=== PATIENT | female | born 1975 | race Caucasian/White ===

== ENCOUNTER 2016-06-01 05:30 | Emergency (ER) | payer MEDICAID ==
[2016-06-01] MEDS ORDERED: SODIUM CHLORIDE 0.9% 1,000 ML IV STA (06:02)
[2016-06-01] MEDS ORDERED: KETOROLAC 30 MG/ML 1 ML VIAL IVP STA (06:02)
--- NOTE | 2016-06-01 06:04 | ED ---
Abdominal Pain HPI - General Source: patient, RN notes reviewed Mode of arrival: ambulatory Limitations: no limitations - History of Present Illness MD Complaint: flank pain <Jey Gauthier - Last Filed: 06/01/16 06:57> <Toby Daniel - Last Filed: 06/01/16 08:20> - General Chief Complaint: Abdominal Pain Stated Complaint: abd/back pain Time Seen by Provider: 06/01/16 05:50 - History of Present Illness Initial Comments: This is a 41-year-old female history kidney stones many years ago states she had the onset earlier this evening and last night of left-sided pain and some low back pain radiating to her groin area. Is mostly dull and achy but at times there is contraction-like feelings was sharp pain. At worst it is 7/10 currently is 6/10 she has some nausea no vomiting no dysuria no hematuria no fevers chills or sweats. She states it does feel somewhat like her previous kidney stone. (Jey Gauthier) - Related Data Home Medications Medication Instructions Recorded Confirmed ALPRAZolam [Xanax] 0.25 - 0.5 mg PO BID PRN 08/14/13 06/01/16 Topiramate [Topiramate] 100 mg PO DAILY 08/14/13 06/01/16 Butalb/Acetaminophen/Caffeine 1 tab PO TID PRN 08/17/14 06/01/16 [Fioricet 50-325-40] Rizatriptan Benzoate [Maxalt] 10 mg SL DAILY PRN 08/17/14 06/01/16 Cholecalciferol [Vitamin D3] 1,000 unit PO Q48H 06/01/16 06/01/16 Dexlansoprazole [Dexilant] 60 mg PO DAILY 06/01/16 06/01/16 Magnesium 200 mg PO DAILY 06/01/16 06/01/16 Pramipexole [Mirapex] 0.125 mg PO HS 06/01/16 06/01/16 Propranolol HCl [Propranolol HCl 60 mg PO DAILY 06/01/16 06/01/16 ER] Turmeric Root Extract [Turmeric] 500 mg PO DAILY 06/01/16 06/01/16 Previous Rx's Medication Instructions Recorded Ketorolac [Toradol] 10 mg PO Q6HR PRN #15 tab 06/01/16 Metoclopramide HCl [Reglan] 10 mg PO Q6HR PRN #15 tablet 06/01/16 Allergies Allergy/AdvReac Type Severity Reaction Status Date / Time Iodinated Contrast Media - Allergy Rash/Hives Verified 06/01/16 07:52 Oral and [Iodinated Contrast Media - IV Dye] Review of Systems ROS Other: All systems not noted in ROS Statement are negative. <Jey Gauthier - Last Filed: 06/01/16 06:57> ROS Other: All systems not noted in ROS Statement are negative. <Toby Daniel - Last Filed: 06/01/16 08:20> ROS Statement: Those systems with pertinent positive or pertinent negative responses have been documented in the HPI. Past Medical History Past Medical History: GERD/Reflux, Hypertension Additional Past Medical History / Comment(s): HAD BLOOD PATCH X2 POST EPIDURAL History of Any Multi-Drug Resistant Organisms: None Reported Past Surgical History: Tubal Ligation Past Anesthesia/Blood Transfusion Reactions: No Reported Reaction Past Psychological History: Anxiety Smoking Status: Former smoker Past Alcohol Use History: Occasional Past Drug Use History: None Reported - Past Family History Mother Family Medical History: Cancer <Jey Gauthier - Last Filed: 06/01/16 06:57> General Exam Limitations: no limitations General appearance: alert, in no apparent distress Head exam: Present: atraumatic, normocephalic, normal inspection Eye exam: Present: normal appearance, PERRL, EOMI. Absent: scleral icterus, conjunctival injection, periorbital swelling ENT exam: Present: normal exam, mucous membranes moist Neck exam: Present: normal inspection. Absent: tenderness, meningismus, lymphadenopathy Respiratory exam: Present: normal lung sounds bilaterally. Absent: respiratory distress, wheezes, rales, rhonchi, stridor Cardiovascular Exam: Present: regular rate, normal rhythm, normal heart sounds. Absent: systolic murmur, diastolic murmur, rubs, gallop, clicks GI/Abdominal exam: Present: soft, normal bowel sounds. Absent: distended, tenderness, guarding, rebound, rigid Extremities exam: Present: normal inspection, full ROM, normal capillary refill. Absent: tenderness, pedal edema, joint swelling, calf tenderness Back exam: Present: normal inspection Neurological exam: Present: alert, oriented X3, CN II-XII intact Psychiatric exam: Present: normal affect, normal mood Skin exam: Present: warm, dry, intact, normal color. Absent: rash <AbrahanJey - Last Filed: 06/01/16 06:57> <Toby Daniel - Last Filed: 06/01/16 08:20> - General Exam Comments Initial Comments: This is a well-developed well-nourished awake alert oriented x3 female (Jey Gauthier) Course <Jey Gauthier - Last Filed: 06/01/16 06:57> <Toby Daniel - Last Filed: 06/01/16 08:20> Vital Signs 06/01/16 06/01/16 06/01/16 05:35 06:53 07:34 Temperature 97.4 F L 98.0 F 98.1 F Pulse Rate 78 66 76 Respiratory 18 18 18 Rate Blood Pressure 194/112 151/101 172/108 O2 Sat by Pulse 100 100 100 Oximetry - Reevaluation(s) Reevaluation #1: 06/01/16 06:57 The patient will be endorsed to Dr. Daniel at our shift change. He will make the final disposition. (Jey Gauthier) Medical Decision Making - Lab Data Result diagrams: 06/01/16 06:18 <AbrahanJey - Last Filed: 06/01/16 06:57> - Lab Data Result diagrams: 06/01/16 06:18 06/01/16 06:18 - Radiology Data Radiology results: image reviewed (kub shows no acute process) <Toby Daniel - Last Filed: 06/01/16 08:20> - Medical Decision Making Patient reevaluated by myself, Dr. Daniel. Patient resting comfortably in bed. Patient states her symptoms are near resolved. Abdomen soft and nontender. Patient states he was never tender to push on. Patient states symptoms are similar to two previous kidney stones. No fevers. Patient only had mild nausea yesterday. Patient is offered computed tomography scan however refuses at this time. Patient is advised that based on her symptoms there is a high likelihood of kidney stones. Pedal pulses 2/4 bilateral (Toby Daniel) - Lab Data Lab Results 06/01/16 06/01/16 06/01/16 Range/Units 05:39 06:18 06:18 WBC 5.1 (3.8-10.6) k/uL RBC 3.86 (3.80-5.40) m/uL Hgb 11.4 (11.4-16.0) gm/dL Hct 34.0 (34.0-46.0) % MCV 88.2 (80.0-100.0) fL MCH 29.4 (25.0-35.0) pg MCHC 33.4 (31.0-37.0) g/dL RDW 14.7 (11.5-15.5) % Plt Count 185 (150-450) k/uL Neutrophils % 64 % Lymphocytes % 24 % Monocytes % 7 % Eosinophils % 2 % Basophils % 1 % Neutrophils # 3.3 (1.3-7.7) k/uL Lymphocytes # 1.2 (1.0-4.8) k/uL Monocytes # 0.4 (0-1.0) k/uL Eosinophils # 0.1 (0-0.7) k/uL Basophils # 0.0 (0-0.2) k/uL Sodium 139 (137-145) mmol/L Potassium 4.4 (3.5-5.1) mmol/L Chloride 109 H (98-107) mmol/L Carbon Dioxide 24 (22-30) mmol/L Anion Gap 6 mmol/L BUN 13 (7-17) mg/dL Creatinine 0.66 (0.52-1.04) mg/dL Est GFR (MDRD) Af Amer >60 (>60 ml/min/1.73 sqM) Est GFR (MDRD) Non-Af >60 (>60 ml/min/1.73 sqM) Glucose 101 H (74-99) mg/dL Calcium 8.6 (8.4-10.2) mg/dL Total Bilirubin 0.4 (0.2-1.3) mg/dL AST 20 (14-36) U/L ALT 23 (9-52) U/L Alkaline Phosphatase 101 (38-126) U/L Total Protein 6.6 (6.3-8.2) g/dL Albumin 3.4 L (3.5-5.0) g/dL Amylase 78 (30-110) U/L Lipase 159 (23-300) U/L Urine Color Light Yellow Urine Appearance Clear (Clear) Urine pH 7.5 (5.0-8.0) Ur Specific [place] 1.013 (1.001-1.035) Urine Protein Negative (Negative) Urine Glucose (UA) Negative (Negative) Urine Ketones Negative (Negative) Urine Blood Small H (Negative) Urine Nitrite Negative (Negative) Urine Bilirubin Negative (Negative) Urine Urobilinogen <2.0 (<2.0) mg/dL Ur Leukocyte Esterase Negative (Negative) Urine RBC 2 (0-5) /hpf Urine WBC 1 (0-5) /hpf Ur Squamous Epith Cells 4 (0-4) /hpf Urine Mucus Rare H (None) /hpf Disposition <Jey Gauthier - Last Filed: 06/01/16 06:57> <Toby Daniel - Last Filed: 06/01/16 08:20> Clinical Impression: Flank pain Disposition: HOME SELF-CARE Condition: Stable Instructions: Flank Pain (ED) Additional Instructions: Please follow-up with primary care physician in the next day or 2 for recheck. Return for increased pain, fevers, uncontrolled vomiting, worsening symptoms or other concerns. Prescriptions: Ketorolac [Toradol] 10 mg PO Q6HR PRN #15 tab PRN Reason: Pain Metoclopramide HCl [Reglan] 10 mg PO Q6HR PRN #15 tablet PRN Reason: Nausea Referrals: Sylvia Pablo MD [Primary Care Provider] - 1-2 days
[2016-06-01 06:29] LABS: Basophils % (A) 1 %; CH 28.8; CHCM 32.8; Eosinophils # (A) 0.1 k/uL (0-0.7); Eosinophils % (A) 2 %; HDW 2.79; HGB 11.4 gm/dL (11.4-16.0); Luc # (Auto) 0.12; Luc % (Auto) 2; Lymphocytes # (A) 1.2 k/uL (1.0-4.8); Lymphocytes % (A) 24 %; MCH 29.4 pg (25.0-35.0); MCHC 33.4 g/dL (31.0-37.0); MCV 88.2 fL (80.0-100.0); Mean Platelet Volume 6.8; Monocytes # (A) 0.4 k/uL (0-1.0); Monocytes % (A) 7 %; Neutrophils # (A) 3.3 k/uL (1.3-7.7); Neutrophils % (A) 64 %; RBC 3.86 m/uL (3.80-5.40); RDW 14.7 % (11.5-15.5); WBC 5.1 k/uL (3.8-10.6); WBC (Perox) 5.47
[2016-06-01 06:41] LABS: Appearance,Urine Clear (Clear); Bilirubin,Urine Negative (Negative); Glucose,Urine (UA) Negative (Negative); Ketones,Urine Negative (Negative); Leukocyte Esterase,Urine Negative (Negative); Mucus,Urine Rare /hpf; Nitrite,Urine Negative (Negative); PH, Urine 7.5 (5.0-8.0); Particle Count 2230; Protein,Urine Negative (Negative); RBC,Urine 2 /hpf (0-5); Specific Gravity,Urine 1.013 (1.001-1.035); Squamous Epithelial Cell,Urine 4 /hpf (0-4); UA Billing (MACRO vs. MICRO) MICRO; Urobilinogen,Urine <2.0 mg/dL (<2.0); WBC,Urine 1 /hpf (0-5)
[2016-06-01 06:44] LABS: ALT 23 U/L (9-52); AST 20 U/L (14-36); Alkaline Phosphatase 101 U/L (38-126); Amylase 78 U/L (30-110); Anion Gap 6 mmol/L; Blood Urea Nitrogen 13 mg/dL (7-17); Calcium 8.6 mg/dL (8.4-10.2); Carbon Dioxide 24 mmol/L (22-30); Chloride 109 mmol/L (98-107); Glucose 101 mg/dL (74-99); Non-African American GFR(MDRD) >60 (>60 ml/min/1.73 sqM); Potassium 4.4 mmol/L (3.5-5.1); Sodium 139 mmol/L (137-145); Total Bilirubin 0.4 mg/dL (0.2-1.3); Total Protein 6.6 g/dL (6.3-8.2)
--- NOTE | 2016-06-01 08:06 | XR ---
Abdomen HISTORY: Left lower quadrant pain, nausea Frontal view of the abdomen on 2 images The lung bases are clear. There is no bowel obstruction or pneumoperitoneum evident. Fallopian tubal ligation clips are present within the pelvis. Probable phlebolith in the left hemipelvis. IMPRESSION: Nonobstructive bowel gas pattern.
[2016-06-01] MEDS ORDERED: PROPRANOLOL 20 MG TAB PO STA (08:37)
[2016-06-01 09:07] VITALS: RESP 16
[2016-06-01 09:50] VITALS: BP 150/81; PULSE 64; TEMP 97.8
== END 2016-06-01 09:53 | disposition home or self-care (01) ==
LOC: EC 05:30
DX: R10.32 Left lower quadrant pain (principal); M54.5 Low back pain; K21.9 Gastro-esophageal reflux disease without esophagitis; I10 Essential (primary) hypertension; Z87.891 Personal history of nicotine dependence; Z79.899 Other long term (current) drug therapy; Z91.041 Radiographic dye allergy status; Z87.442 Personal history of urinary calculi
CPT/HCPCS: 36415; 80053; 82150; 83690; 85025; 81001; 74000; 99284; 96374; 96361 ×4; J1885

== ENCOUNTER → 2017-01-03 | Outpatient (CLI) | payer MEDICAID ==
--- NOTE | 2017-01-03 12:56 | CT ---
EXAMINATION TYPE: CT brain wo con DATE OF EXAM: 01/03/2017 COMPARISON: 12/03/2012 INDICATION: Headache with dizziness DLP: 986.5 mGycm, Automated exposure control for dose reduction was used. CONTRAST: None CT of the brain is performed utilizing 3 mm thick sections through the posterior fossa and 3 mm thick sections through the remaining calvarium. Study is performed within 24 hours of arrival to the hosp [facility]. No abnormal hyperdensity is present to suggest an acute intracranial hemorrhage. No mass lesion is evident. No acute infarcts are evident. Ventricles and sulci are appropriate for the patient age. Paranasal sinuses and mastoid air cells within the [id number] are clear. IMPRESSIONS: 1. Normal CT Brain
== END | disposition home or self-care (01) ==
LOC: RADCTMAIN 10:50
PROVIDERS: ATTEND Family Medicine
DX: R42 Dizziness and giddiness (principal); G43.909 Migraine, unspecified, not intractable, without status migrainosus
CPT/HCPCS: 70450

== ENCOUNTER 2017-01-10 11:41 | Emergency (ER) | payer MEDICAID ==
[2017-01-10 12:01] VITALS: RESP 18
[2017-01-10] MEDS ORDERED: cloNIDine HCL 0.1 MG TAB PO STA (12:15)
--- NOTE | 2017-01-10 12:23 | ED ---
Recheck HPI - General Chief Complaint: Recheck/Abnormal Lab/Rx Stated Complaint: High Blood Pressure Time Seen by Provider: 01/10/17 12:02 Source: patient, RN notes reviewed Mode of arrival: ambulatory Limitations: no limitations - History of Present Illness Initial Comments: This a 41-year-old female presents emergency Department chief complaint of elevated blood pressure. Patient states that they've been adjusting her blood pressure medication states that she recently has been increased to 80 mg of propranolol. She states that she takes is because she also has chronic migraine headaches. She states that her blood pressure seems to be going up since last night states that she did take her medication around 8 PM last night. Patient states that she's also had worsening headaches though she had a CT which showed no acute abnormality. Denies any focal weakness denies chest pain or shortness of breath. 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 Patient states she was at the pulmonology office in which she checked her blood pressure and told about emergency department. - Related Data Home Medications Medication Instructions Recorded Confirmed ALPRAZolam [Xanax] 0.25 - 0.5 mg PO BID PRN 08/14/13 01/10/17 Topiramate [Topiramate] 50 mg PO BID 08/14/13 01/10/17 Butalb/Acetaminophen/Caffeine 1 tab PO TID PRN 08/17/14 01/10/17 [Fioricet 50-325-40] Rizatriptan Benzoate [Maxalt] 10 mg SL DAILY PRN 08/17/14 01/10/17 Dexlansoprazole [Dexilant] 60 mg PO DAILY 06/01/16 01/10/17 Ranitidine HCl [Zantac] 150 mg PO BID 01/10/17 01/10/17 Venlafaxine HCl [Effexor XR] 75 mg PO DAILY 01/10/17 01/10/17 Allergies Allergy/AdvReac Type Severity Reaction Status Date / Time Iodinated Contrast- Oral and Allergy Rash/Hives Verified 01/10/17 12:11 IV Dye [Iodinated Contrast Media - IV Dye] Review of Systems ROS Statement: Those systems with pertinent positive or pertinent negative responses have been documented in the HPI. ROS Other: All systems not noted in ROS Statement are negative. Past Medical History Past Medical History: GERD/Reflux, Hypertension Additional Past Medical History / Comment(s): HAD BLOOD PATCH X2 POST EPIDURAL History of Any Multi-Drug Resistant Organisms: None Reported Past Surgical History: Tubal Ligation Past Anesthesia/Blood Transfusion Reactions: No Reported Reaction Past Psychological History: Anxiety Smoking Status: Former smoker Past Alcohol Use History: Occasional Past Drug Use History: None Reported - Past Family History Mother Family Medical History: Cancer General Exam Limitations: no limitations General appearance: alert, in no apparent distress Head exam: Present: atraumatic, normocephalic, normal inspection Eye exam: Present: normal appearance, PERRL, EOMI. Absent: scleral icterus, conjunctival injection, periorbital swelling ENT exam: Present: normal exam, mucous membranes moist Neck exam: Present: normal inspection. Absent: tenderness, meningismus, lymphadenopathy Respiratory exam: Present: normal lung sounds bilaterally. Absent: respiratory distress, wheezes, rales, rhonchi, stridor Cardiovascular Exam: Present: regular rate, normal rhythm, normal heart sounds. Absent: systolic murmur, diastolic murmur, rubs, gallop, clicks Course Vital Signs 01/10/17 01/10/17 11:58 13:19 Temperature 97.4 F L Pulse Rate 65 Pulse Rate [ 61 Sitting] Pulse Rate [ 69 Standing] Pulse Rate [ 57 L Supine] Respiratory 18 Rate Blood Pressure 174/98 Blood Pressure 170/100 [Sitting] Blood Pressure 142/102 [Standing] Blood Pressure 155/91 [Supine] O2 Sat by Pulse 100 Oximetry Medical Decision Making - Medical Decision Making 41-year-old female presented from for hypertension. Patient states that her PCP this her back and sent in losartan. Patient states she does feel better after the clonidine here. Patient's EKG is acute changes Patient we discharged with follow-up tomorrow 01/10/17 13:26 EKG performed at 12:36 sinus bradycardia rate of 57 [place] interval 180 QRS 96 QT/ QTC 412/401 Disposition Clinical Impression: Hypertension Disposition: HOME SELF-CARE Condition: Stable Instructions: Hypertension (ED) Additional Instructions: Please return to the Emergency Department if symptoms worsen or any other concerns. Referrals: Sylvia Pablo MD [Primary Care Provider] - 1-2 days Time of Disposition: 13:26
[2017-01-10 13:46] VITALS: BP 145/92; PULSE 66
[2017-01-10 13:51] VITALS: TEMP 97.7
== END 2017-01-10 13:51 | disposition home or self-care (01) ==
LOC: EC 11:41
DX: I10 Essential (primary) hypertension (principal); R00.1 Bradycardia, unspecified; G43.909 Migraine, unspecified, not intractable, without status migrainosus; K21.9 Gastro-esophageal reflux disease without esophagitis; F41.9 Anxiety disorder, unspecified; Z87.891 Personal history of nicotine dependence; Z79.899 Other long term (current) drug therapy; Z91.041 Radiographic dye allergy status
CPT/HCPCS: 93005; 99283

== ENCOUNTER 2017-02-15 09:15 | Day surgery (SDC) | payer MEDICAID ==
[2017-02-07 15:31] VITALS: BMI 29.7
[~2017-02-15 09:15] MED LIST: DEXAMETHASONE SOD PHOSPHATE 10 MG/ML 1 ML VIAL IV ONE; LACTATED RINGERS 1,000 ML IV SCH; ONDANSETRON 4 MG/2 ML VIAL IVP ONE
[2017-02-15] MEDS ORDERED: LIDOCAINE 1% 20 ML VIAL (10MG/ML) FOR IV START INTRADERMA ONE (09:55)
[2017-02-15] MEDS ORDERED: GLYCOPYRROLATE 0.2 MG/ML 2 ML VIAL ONE (11:09)
[2017-02-15] MEDS ORDERED: PROPOFOL 10 MG/ML 20 ML VIAL IV ONE (11:09)
[2017-02-15] MEDS ORDERED: LIDOCAINE 1% INJ 10MG/ML (20 ML MDV) ONE (11:09)
--- NOTE | 2017-02-15 11:35 | P.PCN ---
Date of Procedure: 02/15/17 Procedure(s) Performed: Procedure: Esophagogastroduodenoscopy and biopsy. Preoperative diagnosis: Chronic reflux symptoms symptomatic despite therapy. Postoperative diagnosis: 1. Small sliding hiatal hernia with no obvious esophagitis or complicated reflux disease. 2. Mild antral gastritis. 3. Multiple biopsies obtained from the duodenum, antrum and esophagus. Preparation and sedation: Was provided by anesthesia. Brief clinical history: The patient is a 42-year-old female who is scheduled for this evaluation because of chronic reflux symptoms. The patient has been on acid suppressive therapy for more than 15 years. She has been experiencing reflux and nocturnal episodes of reflux and regurgitation despite medical therapy. She denied dysphagia, odynophagia or any other alarm symptoms including any weight loss. She was evaluated in the office last month and was scheduled for this evaluation to assess for complicated reflux disease or other pathology. Procedure: With the patient on her left lateral decubitus position and after informed consent and adequate sedation, I passed the Olympus-GIF 160 video upper endoscope through the cricopharyngeus down the esophagus. GE junction was around 36 cm from the incisors and it appeared irregular and there was a small sliding hiatal hernia around 1 cm in size but there was no erosions, ulcers, strictures or Caicedo's esophagus. The endoscope was then passed into the stomach which was insufflated with air and inspected in detail including the retroflex view in the cardia. There was some minimal mottling and erythema but no ulcers or erosions. Pyloric channel, duodenal bulb, post bulbar area and descending duodenum showed minimal erythema but otherwise normal. I obtained multiple biopsies from the duodenum, antrum and esophagus then the endoscope was withdrawn. Disposition: The patient tolerated the procedure well. Plan: The patient was reassured. Will await biopsy results. She will continue antireflux diet and measures. Further plans can be made based on her course. I will keep you updated on her progress.
[2017-02-15 16:33] VITALS: BP 129/91; PULSE 82; RESP 16; TEMP 96.9
== END 2017-02-15 12:18 | disposition home or self-care (01) ==
LOC: ORWHC2ENDO 09:15
DX: K21.9 Gastro-esophageal reflux disease without esophagitis (principal); K29.50 Unspecified chronic gastritis without bleeding; K44.9 Diaphragmatic hernia without obstruction or gangrene; I10 Essential (primary) hypertension; F32.9 Major depressive disorder, single episode, unspecified; Z91.041 Radiographic dye allergy status; Z79.899 Other long term (current) drug therapy
CPT/HCPCS: 43239; 81025; 88305; 88342; J2001; J2704

== ENCOUNTER → 2017-05-02 | Outpatient (CLI) | payer OTHER ==
--- NOTE | 2017-05-02 12:24 | XR ---
EXAMINATION TYPE: XR ankle complete RT, XR foot complete RT DATE OF EXAM: 05/02/2017 CLINICAL HISTORY: Pain after fall injury one week ago. TECHNIQUE: Frontal, lateral and oblique images of the right ankle and foot are obtained. COMPARISON: None. FINDINGS: There is no acute fracture/dislocation evident in the right ankle. The ankle mortise appe ars within normal limits. Mild soft tissue swelling over lateral malleolus is present. There is no acute fracture or dislocation evident in the right foot. Flexion in toes is identified. T he joint spaces in the right foot are preserved. Overlying soft tissue is unremarkable. IMPRESSION: There is no acute fracture or dislocation in the right ankle or foot.
--- NOTE | 2017-05-02 12:25 | XR ---
EXAMINATION TYPE: XR knee complete LT, XR tibia fibula LT DATE OF EXAM: 05/02/2017 CLINICAL HISTORY: Pain after fall injury one week ago. TECHNIQUE: Three views of the left knee are obtained. 2 views of left tibia and fibula are acquired. COMPARISON: None. FINDINGS: There is no acute fracture/dislocation evident in left knee. The tri-compartment joint sp aces appear within normal limits. The overlying soft tissue appears unremarkable. Images of left tibia and fibula show no acute fracture or dislocation. Some anterior phleboliths are present mid shaft level. Visualized ankle joint is within normal limits. IMPRESSION: There is no acute fracture or dislocation in the left leg or knee.
== END | disposition home or self-care (01) ==
LOC: RADXRMAIN 11:54
PROVIDERS: ATTEND Emergency Medicine
DX: S80.02XA Contusion of left knee, initial encounter (principal); S80.12XA Contusion of left lower leg, initial encounter; S93.401A Sprain of unspecified ligament of right ankle, initial encounter; S93.601A Unspecified sprain of right foot, initial encounter

== ENCOUNTER → 2017-07-11 | Outpatient (CLI) | payer MEDICAID ==
--- NOTE | 2017-07-11 23:13 | MR ---
EXAMINATION TYPE: MR hip LT wo con DATE OF EXAM: 07/11/2017 COMPARISON: NONE HISTORY: Left Hip Pain with Limited ROM, 5-6 Months Standard multiplanar, multisequence MRI departmental protocol Multiplanar, multisequence images of the left hip were acquired. FINDINGS: The pelvic ring is intact. Sacroiliac joints appear normal. Proximal femurs and hip joints are intact. There is no sign of hip dysplasia. Hip joint spaces are symmetric. There is no evidence o f a pelvic mass. There is no free fluid in the pelvis. I see no bony destructive process. There is no evidence of a soft tissue mass. IMPRESSION: Negative MR scan of the left hip. No evidence of hip dysplasia. No evidence of avascular necrosis.
== END | disposition home or self-care (01) ==
LOC: RADMRIMAIN 18:26
PROVIDERS: ATTEND Orthopaedic Surgery
DX: M25.552 Pain in left hip (principal)

== ENCOUNTER → 2017-07-27 | Outpatient (CLI) | payer MEDICAID ==
--- NOTE | 2017-07-29 09:12 | MR ---
EXAMINATION TYPE: MR lumbar spine wo con DATE OF EXAM: 07/27/2017 COMPARISON: NONE HISTORY: Low back pain several months, Left leg pain TECHNIQUE: T1 and T2 axial and sagittal images of the lumbar spine are submitted. FINDINGS: There is no abnormal signal seen within the visualized spinal cord or paraspinal soft tissu es. Heterogeneous marrow signal noted. At L1-2 there is mild hypertrophic changes of the facets. No disc herniation or canal stenosis. No fo raminal encroachment. At L2-3 there is no disc herniation or canal stenosis. No foraminal encroachment. Mild hypertrophic c hange facets. At L3-4 there is mild hypertrophic change of the facets. No disc herniation, canal stenosis or forami nal encroachment. At L4-5 there is moderate facet arthropathy. No foraminal encroachment or disc herniation. No Canal s tenosis. At L5-S1 there is mild facet arthropathy but no disc herniation or canal stenosis. No foraminal encro achment. IMPRESSION: 1. Multilevel facet arthropathy but no evidence of disc herniation, canal stenosis or foraminal encro achment. 2. Heterogeneous marrow signal diffusely. Ambien the basis of marrow reconversion or osteopenia. Jasper elate clinically. Marrow occupying process felt less likely but not entirely excluded correlate clini icndy.
== END | disposition home or self-care (01) ==
LOC: RADMRIMAIN 17:57
PROVIDERS: ATTEND Orthopaedic Surgery
DX: M46.96 Unspecified inflammatory spondylopathy, lumbar region (principal)
CPT/HCPCS: 72148

== ENCOUNTER → 2018-02-14 | Outpatient (CLI) | payer MEDICAID ==
--- NOTE | 2018-02-15 07:56 | MM ---
Reason for exam: screening (asymptomatic). Last mammogram was performed 2 years and 1 month ago. History: Taking hormonal contraceptives for 2 years. Physical Findings: A clinical breast exam by your physician is recommended on an annual basis and results should be correlated with mammographic findings. MG 3D Screening Mammo W/Cad Bilateral CC and MLO view(s) were taken. Prior study comparison: January 28, 2016, bilateral MG 3d screening mammo w/cad. December 28, 2014, bilateral MG screening mammo w CAD. There are scattered fibroglandular densities. There is no discrete abnormality. No significant changes when compared with prior studies. ASSESSMENT: Negative, BI-RAD 1 RECOMMENDATION: Routine screening mammogram of both breasts in 1 year.
== END ==
LOC: RADMAMWWP 07:28
PROVIDERS: ATTEND Family Medicine
DX: Z12.31 Encounter for screening mammogram for malignant neoplasm of breast (principal)
CPT/HCPCS: 77063; 77067

== ENCOUNTER 2018-03-20 12:54 | Emergency (ER) | payer MEDICAID ==
[2018-03-20 13:05] VITALS: RESP 18
[2018-03-20] MEDS ORDERED: KETOROLAC 30 MG/ML 1 ML VIAL IVP STA (13:18)
[2018-03-20] MEDS ORDERED: SODIUM CHLORIDE 0.9% 1,000 ML IV STA (13:18)
--- NOTE | 2018-03-20 13:23 | ED ---
Abdominal Pain HPI - General Chief Complaint: Abdominal Pain Stated Complaint: back pain Time Seen by Provider: 03/20/18 13:11 Source: patient, RN notes reviewed, old records reviewed Mode of arrival: ambulatory Limitations: no limitations - History of Present Illness Initial Comments: 43-year-old female patient with past history of hypertension, GERD, renal calculi, status post tubal ligation presents to ED with 3 days of left posterior axillary line flank pain that does not radiate into her anterior axillary line. Patient states that this feels similar to kidney stones she has had in the past. Patient reports that this is a waxing and waning, squeezing pain, patient reports that she cannot get comfortable. Patient denies any fevers or chills, nausea vomiting diarrhea, dysuria or urinary complaints. Patient denies any other complaints including chest pain, abdominal pain, shortness of breath. Systemic: Pt denies fatigue, myalgia, fever/chills, rash. Pt denies weakness, night sweats, weight loss. Neuro: Pt denies headache, visual disturbances, syncope or pre-syncope. HEENT: Pt denies ocular discharge or irritation, otalgia, rhinorrhea, pharyngitis or notable lymphadenopathy. Cardiopulmonary: Pt denies chest pain, SOB, heart palpitations, dyspnea on exertion. Abdominal/GI: Pt denies abdominal pain, n/v/d. : Pt denies dysuria, burning w/ urination, frequency/urgency. Denies new onset urinary or bowel incontinence. MSK: Pt denies myalgia, loss of strength or function in extremities. Neuro: Pt denies new onset weakness, paresthesias. - Related Data Home Medications Medication Instructions Recorded Confirmed ALPRAZolam [Xanax] 0.25 - 0.5 mg PO BID PRN 08/14/13 03/20/18 Topiramate 50 mg PO BID 08/14/13 03/20/18 Rizatriptan Benzoate [Maxalt] 10 mg SL DAILY PRN 08/17/14 03/20/18 Dexlansoprazole [Dexilant] 60 mg PO DAILY 06/01/16 03/20/18 Venlafaxine HCl [Effexor XR] 75 mg PO QAM 01/10/17 03/20/18 Losartan [Cozaar] 50 mg PO QAM 02/07/17 03/20/18 Wellbutrin (Unknown Dose) 1 tab PO DAILY 03/20/18 03/20/18 Previous Rx's Medication Instructions Recorded Ibuprofen [Motrin] 600 mg PO Q6HR PRN #40 day 03/20/18 Tamsulosin [Flomax] 0.4 mg PO DAILY #10 cap 03/20/18 Allergies Allergy/AdvReac Type Severity Reaction Status Date / Time Iodinated Contrast- Oral and Allergy Rash/Hives Verified 03/20/18 14:16 IV Dye [Iodinated Contrast Media - IV Dye] Review of Systems ROS Statement: Those systems with pertinent positive or pertinent negative responses have been documented in the HPI. ROS Other: All systems not noted in ROS Statement are negative. Past Medical History Past Medical History: GERD/Reflux, Hypertension Additional Past Medical History / Comment(s): migraines History of Any Multi-Drug Resistant Organisms: None Reported Past Surgical History: Tubal Ligation Past Anesthesia/Blood Transfusion Reactions: Previous Problems w/ Anesthesia, Motion Sickness Additional Past Anesthesia/Blood Transfusion Reaction / Comment(s): spinal headache-post epidural for L&D-blood patch x2 post epidural Past Psychological History: Anxiety, Depression Smoking Status: Former smoker Past Alcohol Use History: None Reported Past Drug Use History: None Reported - Past Family History Mother Family Medical History: Cancer Additional Family Medical History / Comment(s): thyroid Father Additional Family Medical History / Comment(s): paternal grandfather had colon and pancreatic CA General Exam - General Exam Comments Initial Comments: Constitutional: NAD, AOX3, Pt has pleasant affect. HEENT: NC/AT, trachea midline, neck supple, no lymphadenopathy. Posterior pharynx non erythematous, without exudates. External ears appear normal, without discharge. Mucous membranes moist. Eyes PERRLA, EOM intact. There is no scleral icterus. No pallor noted. Cardiopulmonary: RRR, no murmurs, rubs or gallops, no JVD noted. Lungs CTAB in anterior and posterior bass. No peripheral edema. Abdominal exam: Abdomen soft and non-distended. Periumbilical region very mildly tender to palpation, no guarding or rigidity. Bowel sounds active in LLQ. No hepatosplenomegaly. No ecchymosis. Left flank mildly tender to palpation. CVA tenderness negative. Neuro: CN II-XII grossly intact. No nuchal rigidity. MSK: No posterior calf tenderness bilaterally, homans sign negative bilaterally. Posterior tibialis and radial pulse +2 bilaterally. Sensation intact in upper and lower extremities. Full active ROM in upper and lower extremities, 5/5 stregnth. Limitations: no limitations Course Vital Signs 03/20/18 03/20/18 13:02 14:41 Temperature 98.6 F Pulse Rate 105 H 87 Respiratory 18 18 Rate Blood Pressure 149/104 131/92 O2 Sat by Pulse 98 100 Oximetry Medical Decision Making - Medical Decision Making 43-year-old female patient with past history of hypertension, GERD, renal calculi, status post tubal ligation presents to ED with 3 days of left posterior axillary line flank pain that does not radiate into her anterior axillary line. Patient states that this feels similar to kidney stones she has had in the past. Patient denies other complaints. Patient vital signs stable, afebrile. Physical exam displayed left flank mildly tender to palpation. No other acute pathology. Laboratory investigations revealed noncompressive CBC, CMP. UA displayed a small amount of blood. Rare bacteria. Noncontrast CT of abdomen and pelvis displayed nonobstructing left-sided renal stones. A 1.2 cm nodule left adrenal gland. Diverticulosis without diverticulitis. Patient denies renal calculi. Patient pain control well-controlled in ED with morphine , Toradol. Patient administered 1 L of normal saline. Pt not driving home. Pt to be DC with flomax and ibuprofen to use for pain. Pt to f/u with PCP and urology in 1-2 days. Case discussed in depth with Dr. Daneil. - Lab Data Result diagrams: 03/20/18 13:34 03/20/18 13:34 Lab Results 03/20/18 03/20/18 03/20/18 Range/Units 13:34 13:34 13:55 WBC 7.0 (3.8-10.6) k/uL RBC 3.99 (3.80-5.40) m/uL Hgb 10.7 L (11.4-16.0) gm/dL Hct 34.2 (34.0-46.0) % MCV 85.8 (80.0-100.0) fL MCH 26.9 (25.0-35.0) pg MCHC 31.3 (31.0-37.0) g/dL RDW 15.4 (11.5-15.5) % Plt Count 233 (150-450) k/uL Neutrophils % 64 % Lymphocytes % 26 % Monocytes % 6 % Eosinophils % 1 % Basophils % 1 % Neutrophils # 4.5 (1.3-7.7) k/uL Lymphocytes # 1.8 (1.0-4.8) k/uL Monocytes # 0.4 (0-1.0) k/uL Eosinophils # 0.1 (0-0.7) k/uL Basophils # 0.0 (0-0.2) k/uL Hypochromasia Slight Sodium 138 (137-145) mmol/L Potassium 4.0 (3.5-5.1) mmol/L Chloride 109 H (98-107) mmol/L Carbon Dioxide 21 L (22-30) mmol/L Anion Gap 8 mmol/L BUN 16 (7-17) mg/dL Creatinine 0.91 (0.52-1.04) mg/dL Est GFR (CKD-EPI)AfAm 89 (>60 ml/min/1.73 sqM) Est GFR (CKD-EPI)NonAf 77 (>60 ml/min/1.73 sqM) Glucose 102 H (74-99) mg/dL Calcium 9.0 (8.4-10.2) mg/dL Total Bilirubin 0.4 (0.2-1.3) mg/dL AST 20 (14-36) U/L ALT 29 (9-52) U/L Alkaline Phosphatase 97 (38-126) U/L Total Protein 6.9 (6.3-8.2) g/dL Albumin 3.8 (3.5-5.0) g/dL Amylase 90 (30-110) U/L Lipase 196 (23-300) U/L Urine Color Light Yellow Urine Appearance Clear (Clear) Urine pH 6.0 (5.0-8.0) Ur Specific [place] 1.004 (1.001-1.035) Urine Protein Negative (Negative) Urine Glucose (UA) Negative (Negative) Urine Ketones Negative (Negative) Urine Blood Small H (Negative) Urine Nitrite Negative (Negative) Urine Bilirubin Negative (Negative) Urine Urobilinogen <2.0 (<2.0) mg/dL Ur Leukocyte Esterase Negative (Negative) Urine RBC 3 (0-5) /hpf Ur Squamous Epith Cells 1 (0-4) /hpf Urine Bacteria Rare H (None) /hpf Disposition Clinical Impression: Renal calculi Disposition: HOME SELF-CARE Condition: Stable Instructions (If sedation given, give patient instructions): Kidney Stones (ED) Additional Instructions: Patient to adhere to previously discussed treatment plan and will take medication(s) as directed. Patient to follow up with PCP in 1-2 days. Patient to return to ED if symptoms do not improve. Prescriptions: Ibuprofen [Motrin] 600 mg PO Q6HR PRN #40 day PRN Reason: Pain Tamsulosin [Flomax] 0.4 mg PO DAILY #10 cap Is patient prescribed a controlled substance at d/c from ED?: No Referrals: Sylvia Pablo MD [Primary Care Provider] - 1-2 days Alberto Owens MD [STAFF PHYSICIAN] - 1-2 days Time of Disposition: 15:34
[2018-03-20 14:01] LABS: Basophils % (A) 1 %; Eosinophils # (A) 0.1 k/uL (0-0.7); Eosinophils % (A) 1 %; HCT 34.2 % (34.0-46.0); HGB 10.7 gm/dL (11.4-16.0); Hypochromasia Slight; Lymphocytes # (A) 1.8 k/uL (1.0-4.8); Lymphocytes % (A) 26 %; MCH 26.9 pg (25.0-35.0); MCHC 31.3 g/dL (31.0-37.0); MCV 85.8 fL (80.0-100.0); Monocytes # (A) 0.4 k/uL (0-1.0); Monocytes % (A) 6 %; Neutrophils # (A) 4.5 k/uL (1.3-7.7); Neutrophils % (A) 64 %; Platelet Count 233 k/uL (150-450); RBC 3.99 m/uL (3.80-5.40); RDW 15.4 % (11.5-15.5)
[2018-03-20 14:16] LABS: Albumin 3.8 g/dL (3.5-5.0); Total Bilirubin 0.4 mg/dL (0.2-1.3); Total Protein 6.9 g/dL (6.3-8.2)
--- NOTE | 2018-03-20 14:17 | CT ---
EXAMINATION TYPE: CT abdomen pelvis wo con DATE OF EXAM: 03/20/2018 COMPARISON: None INDICATION: Lt flank pain DLP: 611.6 mGycm, Automated exposure control for dose reduction was used. CONTRAST: No IV contrast. Study performed without Oral Contrast TECHNIQUE: Axial images were obtained from above the diaphragm to the pubic rami in the axial plane a t 5 mm thick sections. Reconstructed images are reviewed on the computer in the coronal plane. FINDINGS: Limited CT sections are obtained the lung bases. The lung bases are clear. There is a small hiatal hernia present. CT ABDOMEN: Liver: Normal Spleen: Normal Pancreas: Normal Adrenal glands: There is a 1.2 cm nodule in the posterior left adrenal gland. Gallbladder: Normal Kidneys: No masses are evident. No hydronephrosis is present. No cysts are present. There is a non obstructing 0.4 cm calcification in the posterior mid kidney. There is a nonobstructing renal stone s uperior pole left kidney measuring 0.4 cm. No hydroureter is evident. Phleboliths within the pelvis. Aorta: None Inferior vena cava: Normal. CT PELVIS: Loops of bowel within the abdomen and pelvis are normal. Study is without oral contrast limiting the bowel evaluation. Scattered diverticuli without acute diverticulitis are within the sigmoid colon . Appendix: Normal as visualized. Urinary bladder: Normal. Genitourinary structures: Uterus is normal. Adnexal regions are normal. Osseous structures: No suspicious lytic or sclerotic lesions. IMPRESSIONS: 1. Nonobstructing left-sided renal stones. 2. 1.2 cm nodule left adrenal gland. 3. Diverticulosis without acute diverticulitis.
[2018-03-20 14:25] LABS: Appearance,Urine Clear (Clear); Bacteria,Urine Rare /hpf; Bilirubin,Urine Negative (Negative); Blood,Urine Small (Negative); Color,Urine Light Yellow; Glucose,Urine (UA) Negative (Negative); Ketones,Urine Negative (Negative); Leukocyte Esterase,Urine Negative (Negative); Nitrite,Urine Negative (Negative); Protein,Urine Negative (Negative); RBC,Urine 3 /hpf (0-5); Specific Gravity,Urine 1.004 (1.001-1.035); Squamous Epithelial Cell,Urine 1 /hpf (0-4); Urobilinogen,Urine <2.0 mg/dL (<2.0)
[2018-03-20] MEDS ORDERED: MORPHINE SULFATE 4 MG/ML SYRINGE IV STA ×2 (14:26→15:38)
[2018-03-20] MEDS ORDERED: ACET/COD 300 MG/30 MG STARTER PACK 6 TAB BTL PO STA (15:38)
[2018-03-20 16:09] VITALS: BP 151/98; PULSE 81; TEMP 97.9
== END 2018-03-20 16:09 | disposition home or self-care (01) ==
LOC: EC 12:54
DX: N20.0 Calculus of kidney (principal); K57.90 Diverticulosis of intestine, part unspecified, without perforation or abscess without bleeding; E27.9 Disorder of adrenal gland, unspecified; K21.9 Gastro-esophageal reflux disease without esophagitis; I10 Essential (primary) hypertension; G43.909 Migraine, unspecified, not intractable, without status migrainosus; F32.9 Major depressive disorder, single episode, unspecified; F41.9 Anxiety disorder, unspecified; Z87.891 Personal history of nicotine dependence; Z79.899 Other long term (current) drug therapy; Z91.041 Radiographic dye allergy status; Z98.51 Tubal ligation status
CPT/HCPCS: 36415; 80053; 82150; 83690; 85025; 81001; 74176; 99285; 96374; 96375; 96376; 96361 ×2; J2270; J1885

== ENCOUNTER 2020-03-16 15:31 | Observation (INO) | payer BC, MEDICAID ==
[2020-03-16] MEDS ORDERED: NITROGLYCERIN OINT 1 INCH/GM PACKET TOPICAL STA (16:11)
--- NOTE | 2020-03-16 16:13 | ED ---
General Adult HPI - General Chief complaint: Chest Pain Stated complaint: chest pain Time Seen by Provider: 03/16/20 15:35 Source: patient, EMS, RN notes reviewed, old records reviewed Mode of arrival: EMS Limitations: no limitations - History of Present Illness Initial comments: This is a 45-year-old female who has a past medical history significant for hypertension. Patient comes into the emergency department complaining of left- sided chest pain while at work. Patient states it lasted 20 minutes until EMS arrived and gave her a sublingual nitro. Patient states she also took an aspirin while at work. Patient denied any radiation of the pain. Patient states felt like a squeezing around her chest but mostly on the left side anterior to her heart. Patient denies any shortness of breath or difficulty breathing. Patient denies any nausea. Patient denies any recent fever chills or cough. Patient states currently she is chest pain-free. Patient denies any leg swelling or calf tenderness. - Related Data Home Medications Medication Instructions Recorded Confirmed ALPRAZolam [Xanax] 0.25 - 0.5 mg PO BID PRN 08/14/13 03/20/18 Topiramate 50 mg PO BID 08/14/13 03/20/18 Rizatriptan Benzoate [Maxalt] 10 mg SL DAILY PRN 08/17/14 03/20/18 Dexlansoprazole [Dexilant] 60 mg PO DAILY 06/01/16 03/20/18 Venlafaxine HCl [Effexor XR] 75 mg PO QAM 01/10/17 03/20/18 Losartan [Cozaar] 50 mg PO QAM 02/07/17 03/20/18 Wellbutrin (Unknown Dose) 1 tab PO DAILY 03/20/18 03/20/18 Previous Rx's Medication Instructions Recorded Ibuprofen [Motrin] 600 mg PO Q6HR PRN #40 day 03/20/18 Tamsulosin [Flomax] 0.4 mg PO DAILY #10 cap 03/20/18 Allergies Allergy/AdvReac Type Severity Reaction Status Date / Time Iodinated Contrast Media Allergy Rash/Hives Verified 03/16/20 15:39 [Iodinated Contrast Media - IV Dye] Review of Systems ROS Statement: Those systems with pertinent positive or pertinent negative responses have been documented in the HPI. ROS Other: All systems not noted in ROS Statement are negative. Past Medical History Past Medical History: GERD/Reflux, Hypertension Additional Past Medical History / Comment(s): migraines, History of Any Multi-Drug Resistant Organisms: None Reported Past Surgical History: Tubal Ligation Past Anesthesia/Blood Transfusion Reactions: Previous Problems w/ Anesthesia, M otion Sickness Additional Past Anesthesia/Blood Transfusion Reaction / Comment(s): spinal headache-post epidural for L&D-blood patch x2 post epidural Past Psychological History: Anxiety, Depression Smoking Status: Former smoker Past Alcohol Use History: Occasional Past Drug Use History: None Reported - Past Family History Mother Family Medical History: Cancer Additional Family Medical History / Comment(s): thyroid Father Additional Family Medical History / Comment(s): paternal grandfather had colon and pancreatic CA General Exam - General Exam Comments Initial Comments: GENERAL: Patient is well-developed and well-nourished. Patient is nontoxic and well- hydrated and is in no acute distress. ENT: Neck is soft and supple. No significant lymphadenopathy is noted. Oropharynx is clear. Moist mucous membranes. Neck has full range of motion without eliciting any pain. EYES: The sclera were anicteric and conjunctiva were pink and moist. Extraocular movements were intact and pupils were equal round and reactive to light. Eyelids were unremarkable. PULMONARY: Unlabored respirations. Good breath sounds bilaterally. No audible rales rhonchi or wheezing was noted. CARDIOVASCULAR: There is a regular rate and rhythm without any murmurs gallops or rubs. ABDOMEN: Soft and nontender with normal bowel sounds. SKIN: Skin is clear with no lesions or rashes and otherwise unremarkable. NEUROLOGIC: Patient is alert and oriented x3. Cranial nerves II through XII are grossly i ntact. Motor and sensory are also intact. Normal speech, volume and content. Symmetrical smile. MUSCULOSKELETAL: Normal extremities with adequate strength and full range of motion. No lower extremity swelling or edema. No calf tenderness. LYMPHATICS: No significant lymphadenopathy is noted PSYCHIATRIC: Normal psychiatric evaluation. Limitations: no limitations Course Vital Signs 03/16/20 03/16/20 15:35 16:15 Temperature 97.7 F Pulse Rate 71 66 Respiratory 18 18 Rate Blood Pressure 126/81 115/81 O2 Sat by Pulse 98 99 Oximetry Medical Decision Making - Medical Decision Making EKG shows normal sinus rhythm at 70 bpm MI interval is 172 QRS is 86 QT interval 376 QTC is 406. Patient has no ST segment elevation or depression Chest x-ray shows no acute abnormality. Patient remained chest pain-free ever since she received the nitroglycerin on the ambulance. I started the patient heparin for unstable angina. I spoke with some physicians agreed to admit the patient admitted the patient I consulted cardiology I continue aspirin and Nitropaste and heparin on the floor. - Lab Data Result diagrams: 03/16/20 16:12 03/16/20 16:12 Lab Results 03/16/20 03/16/20 03/16/20 Range/Units 16:12 16:12 16:12 WBC 8.0 (3.8-10.6) k/uL RBC 3.87 (3.80-5.40) m/uL Hgb 11.1 L (11.4-16.0) gm/dL Hct 34.8 (34.0-46.0) % MCV 90.0 (80.0-100.0) fL MCH 28.8 (25.0-35.0) pg MCHC 31.9 (31.0-37.0) g/dL RDW 15.1 (11.5-15.5) % Plt Count 250 (150-450) k/uL MPV 7.6 Neutrophils % 60 % Lymphocytes % 28 % Monocytes % 7 % Eosinophils % 1 % Basophils % 0 % Neutrophils # 4.8 (1.3-7.7) k/uL Lymphocytes # 2.3 (1.0-4.8) k/uL Monocytes # 0.6 (0-1.0) k/uL Eosinophils # 0.1 (0-0.7) k/uL Basophils # 0.0 (0-0.2) k/uL PT 9.9 (9.0-12.0) sec INR 0.9 (<1.2) APTT 20.1 L (22.0-30.0) sec Sodium 137 (137-145) mmol/L Potassium 3.9 (3.5-5.1) mmol/L Chloride 107 (98-107) mmol/L Carbon Dioxide 18 L (22-30) mmol/L Anion Gap 12 mmol/L BUN 16 (7-17) mg/dL Creatinine 0.94 (0.52-1.04) mg/dL Est GFR (CKD-EPI)AfAm 84 (>60 ml/min/1.73 sqM) Est GFR (CKD-EPI)NonAf 73 (>60 ml/min/1.73 sqM) Glucose 88 (74-99) mg/dL Calcium 9.1 (8.4-10.2) mg/dL Magnesium 1.9 (1.6-2.3) mg/dL Total Bilirubin 0.2 (0.2-1.3) mg/dL AST 19 (14-36) U/L ALT 16 (4-34) U/L Alkaline Phosphatase 89 (38-126) U/L Troponin I (0.000-0.034) ng/mL Total Protein 6.7 (6.3-8.2) g/dL Albumin 3.5 (3.5-5.0) g/dL 03/16/20 Range/Units 16:12 WBC (3.8-10.6) k/uL RBC (3.80-5.40) m/uL Hgb (11.4-16.0) gm/dL Hct (34.0-46.0) % MCV (80.0-100.0) fL MCH (25.0-35.0) pg MCHC (31.0-37.0) g/dL RDW (11.5-15.5) % Plt Count (150-450) k/uL MPV Neutrophils % % Lymphocytes % % Monocytes % % Eosinophils % % Basophils % % Neutrophils # (1.3-7.7) k/uL Lymphocytes # (1.0-4.8) k/uL Monocytes # (0-1.0) k/uL Eosinophils # (0-0.7) k/uL Basophils # (0-0.2) k/uL PT (9.0-12.0) sec INR (<1.2) APTT (22.0-30.0) sec Sodium (137-145) mmol/L Potassium (3.5-5.1) mmol/L Chloride (98-107) mmol/L Carbon Dioxide (22-30) mmol/L Anion Gap mmol/L BUN (7-17) mg/dL Creatinine (0.52-1.04) mg/dL Est GFR (CKD-EPI)AfAm (>60 ml/min/1.73 sqM) Est GFR (CKD-EPI)NonAf (>60 ml/min/1.73 sqM) Glucose (74-99) mg/dL Calcium (8.4-10.2) mg/dL Magnesium (1.6-2.3) mg/dL Total Bilirubin (0.2-1.3) mg/dL AST (14-36) U/L ALT (4-34) U/L Alkaline Phosphatase (38-126) U/L Troponin I <0.012 (0.000-0.034) ng/mL Total Protein (6.3-8.2) g/dL Albumin (3.5-5.0) g/dL Critical Care Time Critical Care Time: Yes Total Critical Care Time: 35 Disposition Clinical Impression: Unstable angina pectoris Disposition: ADMITTED IP TO THIS HOSP Referrals: David Garcia [Primary Care Provider] - 1-2 days Time of Disposition: 17:13
[2020-03-16 16:24] LABS: Basophils % (A) 0 %; Eosinophils # (A) 0.1 k/uL (0-0.7); Eosinophils % (A) 1 %; HCT 34.8 % (34.0-46.0); HGB 11.1 gm/dL (11.4-16.0); Lymphocytes # (A) 2.3 k/uL (1.0-4.8); Lymphocytes % (A) 28 %; MCH 28.8 pg (25.0-35.0); MCHC 31.9 g/dL (31.0-37.0); Mean Platelet Volume 7.6; Monocytes # (A) 0.6 k/uL (0-1.0); Monocytes % (A) 7 %; Neutrophils # (A) 4.8 k/uL (1.3-7.7); Neutrophils % (A) 60 %; Platelet Count 250 k/uL (150-450); RBC 3.87 m/uL (3.80-5.40); RDW 15.1 % (11.5-15.5)
[2020-03-16 16:32] LABS: Albumin 3.5 g/dL (3.5-5.0); Calcium 9.1 mg/dL (8.4-10.2); Magnesium 1.9 mg/dL (1.6-2.3); Potassium 3.9 mmol/L (3.5-5.1); Total Bilirubin 0.2 mg/dL (0.2-1.3); Total Protein 6.7 g/dL (6.3-8.2)
[2020-03-16 16:45] LABS: INR 0.9 (<1.2); Prothrombin Time 9.9 sec (9.0-12.0)
--- NOTE | 2020-03-16 16:46 | XR ---
EXAMINATION TYPE: XR chest 2V DATE OF EXAM: 03/16/2020 COMPARISON: 10/08/2015 INDICATION: Chest pain TECHNIQUE: Single frontal view of the chest is obtained. FINDINGS: The heart size is normal. The pulmonary vasculature is normal. The lungs are clear. IMPRESSION: 1. No acute pulmonary process.
[2020-03-16 17:04] LABS: Partial Thromboplastin Time 20.1 sec (22.0-30.0)
[2020-03-16] MEDS ORDERED: HEPARIN SODIUM,PORCINE 5,000 UNIT/ML 1 ML VIAL IV ONE (17:11)
[2020-03-16] MEDS ORDERED: NITROGLYCERIN SL TABS 0.4 MG TAB SUBLINGUAL PRN (17:13)
[2020-03-16] MEDS ORDERED: HEPARIN SOD,PORK IN 0.45% NACL 25,000 UNIT in 0.45% NACL 1 250ML.BAG IV SCH (17:15)
[2020-03-16] MEDS ORDERED: ACETAMINOPHEN TAB 325 MG TAB PO PRN (19:25)
--- NOTE | 2020-03-17 00:02 | P.HPIM ---
History of Present Illness H&P Date: 03/16/20 The patient is a 45-year-old female with a PMH of hypertension presented to the emergency room with complaints of chest pain. The patient notes that she was in her usual state of health until about 3 PM today when she suddenly developed a left-sided sharp pressure-like chest discomfort. The pain was 8 out of 10, nonradiating, with no associated symptoms, nonpleuritic, with no alleviating or exacerbating features. The patient was sitting in a chair at work when the pain started. She told her coworker to activate EMS. The pain resolved within 4 hours spontaneously. The patient noted that at time of her chest discomfort, she not experience palpitations, shortness of breath, dizziness, nausea, vomiting, or arm pain. The patient reported no active complaints at the time of interview. She underwent an extensive evaluation in the emergency room with an EKG showing normal sinus rhythm at 70 bpm with no acute ST/T-wave changes noted as reviewed by me. Chest x-ray was unremarkable. Laboratory evaluation was remarkable for hemoglobin of 11.1, CO2 18, troponin less than 0.012. Review of Systems Pertinent positives and negatives as discussed in HPI, a complete review of systems was performed and all other systems are negative. Past Medical History Past Medical History: GERD/Reflux, Hypertension Additional Past Medical History / Comment(s): migraines, History of Any Multi-Drug Resistant Organisms: None Reported Past Surgical History: Tubal Ligation Past Anesthesia/Blood Transfusion Reactions: Previous Problems w/ Anesthesia, Motion Sickness Additional Past Anesthesia/Blood Transfusion Reaction / Comment(s): spinal headache-post epidural for L&D-blood patch x2 post epidural Past Psychological History: Anxiety, Depression Smoking Status: Former smoker Past Alcohol Use History: Occasional Additional Past Alcohol Use History / Comment(s): quit smoking 2009,smoked 7 years 1ppd Past Drug Use History: None Reported - Past Family History Mother Family Medical History: Cancer Additional Family Medical History / Comment(s): thyroid Father Additional Family Medical History / Comment(s): paternal grandfather had colon and pancreatic CA Medications and Allergies Home Medications Medication Instructions Recorded Confirmed Type Topiramate 100 mg PO DAILY 08/14/13 03/16/20 History Rizatriptan Benzoate [Maxalt] 10 mg SL TID PRN 08/17/14 03/16/20 History Venlafaxine HCl [Effexor XR] 75 mg PO DAILY 01/10/17 03/16/20 History Lansoprazole 30 mg PO DAILY 03/16/20 03/16/20 History Losartan Potassium [Cozaar] 100 mg PO DAILY 03/16/20 03/16/20 History Multivitamins, Thera [Multivitamin 1 tab PO DAILY 03/16/20 03/16/20 History (formulary)] Propranolol HCl [Inderal Xl] 80 mg PO DAILY 03/16/20 03/16/20 History buPROPion HCL [Wellbutrin SR] 150 mg PO Q12H 03/16/20 03/16/20 History Allergies Allergy/AdvReac Type Severity Reaction Status Date / Time Iodinated Contrast Media Allergy Rash/Hives Verified 03/16/20 17:34 [Iodinated Contrast Media - IV Dye] Physical Exam Vitals: Vital Signs Temp Pulse Pulse Resp BP BP Pulse Ox 03/16/20 18:33 97.5 F L 67 14 107/63 100 03/16/20 18:30 100 03/16/20 17:32 98.2 F 69 18 100/66 98 03/16/20 17:20 98.2 F 72 16 102/67 99 03/16/20 16:15 66 18 115/81 99 03/16/20 15:35 97.7 F 71 18 126/81 98 Intake and Output 03/16/20 03/16/20 03/16/20 06:59 14:59 22:59 Other: # Voids 1 Weight 89.358 kg General: non toxic, no distress, appears at stated age, normal weight Derm: no unusual rashes/lesions no unusual ecchymoses, warm, dry Head: atraumatic, normocephalic, symmetric Eyes: EOMI, no lid lag, anicteric sclera, pupils equal round reactive to light ENT: Nose and ears atraumatic, no thrush, no pharyngeal erythema Neck: No thyromegaly, no cervical lymphadenopathy, trachea midline, supple Mouth: no lip lesion, mucus membranes moist Cardiovascular: S1S2 reg, no murmur, positive posterior tibial pulse bilateral, no edema, capillary refill less than 2 seconds Lungs: CTA bilateral, no rhonchi, no rales , no accessory muscle use Abdominal: soft, nontender to palpation, no guarding, no appreciable organomegaly, normal bowel sounds Ext: no gross muscle atrophy, muscle strength 5 out of 5 in all 4 extremities grossly, no contractures, Neuro: CN II-XI grossly intact, light touch intact all 4 extremities, finger to nose within normal limits, Psych: Alert, oriented, appropriate affect Results CBC & Chem 7: 03/16/20 16:12 03/16/20 16:12 Labs: Abnormal Lab Results - Last 24 Hours (Table) 03/16/20 03/16/20 03/16/20 Range/Units 16:12 16:12 16:12 Hgb 11.1 L (11.4-16.0) gm/dL APTT 20.1 L (22.0-30.0) sec Carbon Dioxide 18 L (22-30) mmol/L Thrombosis Risk Factor Assmnt - Choose All That Apply Any of the Below Risk Factors Present?: Yes Each Factor Represents 1 point: Age 41-60 years, Obesity (BMI >25) Other Risk Factors: No Other congenital or acquired thrombophilia - If yes, enter type in comment: No Thrombosis Risk Factor Assessment Total Risk Factor Score: 2 Thrombosis Risk Factor Assessment Level: Low Risk Assessment and Plan Plan: Unstable angina -Trend troponin -Heparin infusion -Cardiology consult -Cardiac monitoring -Continue with aspirin Normocytic anemia -Similar to baseline Hypertension -Continue with home meds DVT prophylaxis -Heparin infusion The patient is admitted with an anticipated less than 2 midnight stay for evaluation of chest pain CODE STATUS: Full Code Discussed with: Patient Anticipated discharge date: in am Anticipated discharge place: Home A total of 35 minutes was spent on the care of this complex patient more than 50% of the time was spent in counseling and care coordination.
[2020-03-17] MEDS: NITROGLYCERIN OINT 1 INCH/GM PACKET TOPICAL SCH ×2 (01:19→05:33)
[2020-03-17] MEDS ORDERED: buPROPion SR 150 MG TABLET.ER PO SCH (01:30)
[2020-03-17 08:12] VITALS: RESP 16; TEMP 98.1
[2020-03-17] MEDS ORDERED: TOPIRAMATE 100 MG TAB PO SCH (09:00)
[2020-03-17] MEDS ORDERED: LOSARTAN 50 MG TAB PO SCH (09:00)
[2020-03-17] MEDS ORDERED: ASPIRIN 325 MG TAB PO SCH (09:00)
[2020-03-17] MEDS ORDERED: PROPRANOLOL LA 80 MG CAP.SA.24H PO SCH (09:00)
[2020-03-17] MEDS ORDERED: VENLAFAXINE HCL ER 75 MG CAP PO SCH (09:00)
[2020-03-17 10:01] LABS: Chol/HDL Ratio 4.55; LDL Cholesterol,Calculated 89.6 mg/dL (0.0-131.0); VLDL Calculation 59.4 mg/dL (5.00-40.00)
--- NOTE | 2020-03-17 10:11 | P.STRESS ---
- Stress Test Note Stress Test Results/Findings: Exam Performed: stress echo exercise Exam Date: 03/17/20 Reason for Exam: CHEST PAIN Height: 5 ft 7 in Weight: 89.36 kg Protocol: EXERCISE STRESS ECHO Stage: III Duration of Exercise: 7:00 Resting Heart Rate: 67 Resting Blood Pressure: 116/76 Maximum Achieved Heart Rate: 152 Maximum Achieved Blood Pressure: 153/79 85% PMHR: 148 100% PMHR: 174 METS: 8.3 Technologist Comment: Stress Test Results/Findings: This is a 45-year-old female with history of hypertension and smoking admitted to the hospital with complaints of chest pain and palpitations, Stress data: Baseline EKG showed sinus rhythm with short VT and QRS duration with minor nonspecific ST-T changes. Blood pressure at rest is 116/76 with pulse rate of 67. Patient walked on the Darren protocol for 7 minutes achieving a maximum heart rate of 152 with a blood pressure 153/79. EKGs taken during and after the exercise did not reveal any significant changes from the baseline. There are mild nonspecific ST-T abnormalities in inferolateral leads which are not diagnostic for ischemia. Echo data: Baseline echo images show normal wall motion and thickening. Exercise echo images showed augmentation of wall motion and thickening in all segments. Final impression: #1. Patient developed nonspecific ST-T abnormalities which are not diagnostic for ischemia, making it an inconclusive stress test #2. Negative stress echo
--- NOTE | 2020-03-17 10:35 | ECHOF ---
Referral Reason:LV function MEASUREMENTS -------- HEIGHT: 170.2 cm WEIGHT: 87.5 kg BP: RVIDd: 3.2 cm (< 3.3) IVSd: 0.9 cm (0.6 - 1.1) LVIDd: 4.4 cm (3.9 - 5.3) LVPWd: 1.0 cm (0.6 - 1.1) IVSs: 1.4 cm LVIDs: 2.8 cm LVPWs: 1.4 cm LA Diam: 3.0 cm (2.7 - 3.8) LAESV Index (A-L): 19.88 ml/m Ao Diam: 3.3 cm (2.0 - 3.7) AV Cusp: 1.9 cm (1.5 - 2.6) MV EXCURSION: 15.792 mm (> 18.000) MV EF SLOPE: 79 mm/s (70 - 150) EPSS: 0.5 cm MV E Eric: 0.89 m/s MV DecT: 209 ms MV A Eric: 0.95 m/s MV E/A Ratio: 0.94 RAP: 5.00 mmHg RVSP: 28.52 mmHg FINDINGS -------- Sinus rhythm. This was a technically good study. The left ventricular size is normal. Left ventricular wall thickness is normal. Overall left vent ricular systolic function is normal with, an EF between 60 - 65 %. The right ventricle is normal in size. Normal LA size by volume 22+/-6 ml/m2. The right atrium is normal in size. Interatrial and interventricular septum intact. The aortic valve is trileaflet and appears structurally normal. The mitral valve is normal. Trace tricuspid regurgitation present. Right ventricular systolic pressure is normal at < 35 mmHg. The pulmonic valve is normal. The aortic root size is normal. Normal inferior vena cava with normal inspiratory collapse consistent with estimated right atrial pre ssure of 5 mmHg. There is no pericardial effusion. CONCLUSIONS -------- 1. The left ventricular size is normal. 2. Left ventricular wall thickness is normal. 3. Overall left ventricular systolic function is normal with, an EF between 60 - 65 %. 4. The aortic valve is trileaflet and appears structurally normal. 5. Trace tricuspid regurgitation present. 6. There is no pericardial effusion. [employer]URAL [employer]EL WORK[employer] APPRENTICE: Eva Zacny, RDCS
--- NOTE | 2020-03-17 10:44 | P.CRDCN ---
History of Present Illness Consult date: 03/17/20 History of present illness: CHIEF COMPLAINT: Chest pain HISTORY OF PRESENT ILLNESS: This is a 45 year old female with a past medical history significant for hypertension and former nicotine dependence. 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 We have been asked to see the patient in consultation for chest pain. Patient examined this morning at the bedside. Patient states she was at work yesterday when she developed chest pain. 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 She states the pain was most intense in the left part of her chest but states the pain was felt throughout her entire chest. She states it felt like a twisting sensation. She denied any radiation to the arms, jaw, or back. She denies any shortness of breath. She denied any nausea or vomiting. Patient states that she took an aspirin before EMS arrived. She was given sublingual nitro by EMS which she states helped the pain. She reports that time she came to the emergency room the pain was most gone. The patient denies any chest pain or pressure this morning. DIAGNOSTICS: EKG reveals sinus mechanism with no signs of acute ischemia Chest xray negative for acute process Laboratory data: WBC 8.0. Hemoglobin 11.1. Platelet count 250. D-dimer 0.22. Sodium 137. Potassium 3.9. BUN 16. Creatinine 0.94. Magnesium 1.9. Troponin negative 3. Current home cardiac medications include propanolol 80 mg daily and losartan 100 mg daily REVIEW OF SYSTEMS: At the time of my exam: CONSTITUTIONAL: Denies fever or chills. HEENT: Denies blurred vision, vision changes, or eye pain. Denies hemoptysis CARDIOVASCULAR: Denies chest pain, orthopnea, PND or palpitations RESPIRATORY: No shortness of breath. GASTROINTESTINAL: Denies abdominal pain. Denies nausea or vomiting. HEMATOLOGIC: Denies bleeding disorders. GENITOURINARY: Denies any blood in urine. SKIN: Denies pruitis. Denies rash. PHYSICAL EXAM: VITAL SIGNS: Reviewed. GENERAL: Well-developed in no acute distress. HEENT: Head is normocephalic. Pupils are equal, round. Sclerae anicteric. Mucous membranes of the mouth are moist. Neck supple. No JVD or thyromegaly LUNGS: Respirations even and unlabored. Lungs essentially clear to auscultation bilaterally. HEART: Regular rate and rhythm. S1 and S2 heard. ABDOMEN: Soft. Nondistended. Nontender. EXTREMITIES: Normal range of motion. No clubbing or cyanosis. Peripheral pulses intact. No lower extremity edema NEUROLOGIC: Awake and alert. Oriented x 3. ASSESSMENT: Chest pain, troponin negative x 3 Hypertension Former nicotine dependence PLAN: An acute coronary event has been ruled out Resume home cardiac medications Discontinue IV heparin, nitro paste, and aspirin Obtain 2-D echo to assess cardiac structure and function Patient to undergo stress echo today to assess for ischemia If stress test is negative and echocardiogram does not reveal any significant abnormalities, the patient may be discharged home today from a cardiac perspective Nurse practitioner note has been reviewed by physician. Signing provider agrees with the documented findings, assessment, and plan of care. Past Medical History Past Medical History: GERD/Reflux, Hypertension Additional Past Medical History / Comment(s): migraines, History of Any Multi-Drug Resistant Organisms: None Reported Past Surgical History: Tubal Ligation Past Anesthesia/Blood Transfusion Reactions: Previous Problems w/ Anesthesia, Motion Sickness Additional Past Anesthesia/Blood Transfusion Reaction / Comment(s): spinal headache-post epidural for L&D-blood patch x2 post epidural Past Psychological History: Anxiety, Depression Smoking Status: Former smoker Past Alcohol Use History: Occasional Additional Past Alcohol Use History / Comment(s): quit smoking 2009,smoked 7 years 1ppd Past Drug Use History: None Reported - Past Family History Mother Family Medical History: Cancer Additional Family Medical History / Comment(s): thyroid Father Additional Family Medical History / Comment(s): paternal grandfather had colon and pancreatic CA Medications and Allergies Home Medications Medication Instructions Recorded Confirmed Type Topiramate 100 mg PO DAILY 08/14/13 03/16/20 History Rizatriptan Benzoate [Maxalt] 10 mg SL TID PRN 08/17/14 03/16/20 History Venlafaxine HCl [Effexor XR] 75 mg PO DAILY 01/10/17 03/16/20 History Lansoprazole 30 mg PO DAILY 03/16/20 03/16/20 History Losartan Potassium [Cozaar] 100 mg PO DAILY 03/16/20 03/16/20 History Multivitamins, Thera [Multivitamin 1 tab PO DAILY 03/16/20 03/16/20 History (formulary)] Propranolol HCl [Inderal Xl] 80 mg PO DAILY 03/16/20 03/16/20 History buPROPion HCL [Wellbutrin SR] 150 mg PO Q12H 03/16/20 03/16/20 History Allergies Allergy/AdvReac Type Severity Reaction Status Date / Time Iodinated Contrast Media Allergy Rash/Hives Verified 03/16/20 17:34 [Iodinated Contrast Media - IV Dye] Physical Exam Vitals: Vital Signs Temp Pulse Pulse Resp BP BP Pulse Ox 03/17/20 08:11 98.1 F 75 16 114/77 100 03/17/20 03:00 54 L 18 03/16/20 20:00 98.2 F 69 18 100/66 98 03/16/20 18:33 97.5 F L 67 14 107/63 100 03/16/20 18:30 100 03/16/20 17:32 98.2 F 69 18 100/66 98 03/16/20 17:20 98.2 F 72 16 102/67 99 03/16/20 16:15 66 18 115/81 99 03/16/20 15:35 97.7 F 71 18 126/81 98 Intake and Output 03/16/20 03/17/20 03/17/20 22:59 06:59 14:59 Intake Total 540 Balance 540 Intake: Oral 540 Other: Voiding Method Toilet Toilet # Voids 1 2 Weight 89.358 kg 89.36 kg Results 03/16/20 16:12 03/16/20 16:12 Cardiac Enzymes 03/16/20 03/16/20 03/16/20 Range/Units 16:12 16:12 18:50 AST 19 (14-36) U/L Troponin I <0.012 <0.012 (0.000-0.034) ng/mL 03/16/20 Range/Units 23:02 AST (14-36) U/L Troponin I <0.012 (0.000-0.034) ng/mL Coagulation 03/16/20 03/16/20 Range/Units 16:12 23:02 PT 9.9 (9.0-12.0) sec APTT 20.1 L 50.4 H (22.0-30.0) sec Lipids 03/16/20 Range/Units 16:12 Triglycerides 297.0 H (0.0-149.0) mg/dL Cholesterol 191 (0-200) mg/dL HDL Cholesterol 42.0 (40.0-60.0) mg/dL Cholesterol/HDL Ratio 4.55 CBC 03/16/20 Range/Units 16:12 WBC 8.0 (3.8-10.6) k/uL RBC 3.87 (3.80-5.40) m/uL Hgb 11.1 L (11.4-16.0) gm/dL Hct 34.8 (34.0-46.0) % Plt Count 250 (150-450) k/uL Comprehensive Metabolic Panel 03/16/20 Range/Units 16:12 Sodium 137 (137-145) mmol/L Potassium 3.9 (3.5-5.1) mmol/L Chloride 107 (98-107) mmol/L Carbon Dioxide 18 L (22-30) mmol/L BUN 16 (7-17) mg/dL Creatinine 0.94 (0.52-1.04) mg/dL Glucose 88 (74-99) mg/dL Calcium 9.1 (8.4-10.2) mg/dL AST 19 (14-36) U/L ALT 16 (4-34) U/L Alkaline Phosphatase 89 (38-126) U/L Total Protein 6.7 (6.3-8.2) g/dL Albumin 3.5 (3.5-5.0) g/dL Current Medications Generic Name Dose Route Start Last Admin Trade Name Freq PRN Reason Stop Dose Admin Acetaminophen 650 mg 03/16/20 19:25 03/16/20 20:28 Acetaminophen Tab 325 Mg Tab PO 650 mg Q6HR PRN Administration Fever and/ or Pain Aspirin 325 mg 03/17/20 09:00 Aspirin 325 Mg Tab PO DAILY [facility] Bupropion HCl 150 mg 03/17/20 01:30 03/17/20 01:29 Bupropion Sr 150 Mg Tablet.Er PO Not Given Q12H [facility] Losartan Potassium 100 mg 03/17/20 09:00 Losartan 50 Mg Tab PO DAILY [facility] Nitroglycerin 1 inch 03/17/20 00:00 03/17/20 05:33 Nitroglycerin Oint 1 Inch/Gm Packet TOPICAL Not Given Q6HR [facility] Nitroglycerin 0.4 mg 03/16/20 17:13 Nitroglycerin Sl Tabs 0.4 Mg Tab SUBLINGUAL Q5M PRN Chest Pain Propranolol HCl 80 mg 03/17/20 09:00 Propranolol La 80 Mg Cap.Sa.24h PO DAILY [facility] Topiramate 100 mg 03/17/20 09:00 Topiramate 100 Mg Tab PO DAILY [facility] Venlafaxine HCl 75 mg 03/17/20 09:00 Venlafaxine Hcl Er 75 Mg Cap PO DAILY [facility] Intake and Output 03/16/20 03/17/20 03/17/20 22:59 06:59 14:59 Intake Total 540 Balance 540 Intake: Oral 540 Other: Voiding Method Toilet Toilet # Voids 1 2 Weight 89.358 kg 89.36 kg Patient Weight 03/18/20 06:59 Weight 89.36 kg 03/16/20 16:12 03/16/20 16:12
[2020-03-17 12:02] VITALS: BP 132/85; PULSE 76
--- NOTE | 2020-03-17 12:46 | P.DS ---
<Ren Peralta - Last Filed: 03/17/20 12:37> Providers Expected date of discharge: 03/17/20 Hospital Course: Discharge Diagnosis: Chest pain, acute coronary event has been ruled out. Hypertension, controlled Normocytic normochromic anemia, chronic and at baseline Hospital Course: Patient is a 45-year-old female with a past medical history of hypertension and former nicotine dependence who presented to [facility] on 03/15/20 with a chief complaint of chest pain. Patient was reportedly at work sitting at her desk when she developed sudden onset twisting nonradiating chest pain throughout her entire anterior chest. Patient was admitted for concerns of unstable angina given aspirin, and placed on heparin infusion with Nitropaste. Troponins were trended with all negative results. EKG completed revealing normal sinus rhythm at 70 bpm with no T-wave or ST abnormalities. D-dimer negative. Patient was seen and evaluated by cardiology, heparin infusion and Nitropaste was discontinued. Negative stress echo and Echocardiogram completed revealing a normal ejection fraction between 60-65% with no significant valvular abnormalities. Patient cleared by cardiology for discharge home and acute coronary event has been ruled out. Physical Examination: Patient seen and examined at bedside. Vital signs reviewed and stable. Patient reports having a mild headache and feeling hungry. She denies having any lightheadedness, dizziness, chest pain, palpitations, shortness of breath, dyspnea with exertion, abdominal pain, nausea, vomiting, or experiencing any pain/numbness/weakness/tingling in extremities. General: non toxic, no distress, appears at stated age Derm: warm, dry Head: atraumatic, normocephalic, symmetric Eyes: EOMI, no lid lag, anicteric sclera Mouth: no lip lesion, mucus membranes moist Cardiovascular: S1S2 reg, no murmur, positive posterior tibial pulses bilaterally, cap refill less than 2 seconds. Lungs: CTA bilateral, no rhonchi, no rales , no accessory muscle use Abdominal: soft, nontender to palpation, no guarding, no appreciable organomegaly Ext: no gross muscle atrophy, no edema, no contractures Neuro: Speech clear, no focal neuro deficits Psych: Alert, oriented, appropriate affect A total of 45 minutes of time were spent preparing this complex discharge summary. Patient Condition at Discharge: Good Plan - Discharge Summary Discharge Rx Participant: No New Discharge Prescriptions: Continue Topiramate 100 mg PO DAILY Rizatriptan Benzoate [Maxalt] 10 mg SL TID PRN PRN Reason: Migraine Headache Venlafaxine HCl [Effexor XR] 75 mg PO DAILY Multivitamins, Thera [Multivitamin (formulary)] 1 tab PO DAILY Propranolol HCl [Inderal Xl] 80 mg PO DAILY Losartan Potassium [Cozaar] 100 mg PO DAILY buPROPion HCL [Wellbutrin SR] 150 mg PO Q12H Lansoprazole 30 mg PO DAILY Discharge Medication List Topiramate 100 mg PO DAILY 08/14/13 [History] Rizatriptan Benzoate [Maxalt] 10 mg SL TID PRN 08/17/14 [History] Venlafaxine HCl [Effexor XR] 75 mg PO DAILY 01/10/17 [History] Lansoprazole 30 mg PO DAILY 03/16/20 [History] Losartan Potassium [Cozaar] 100 mg PO DAILY 03/16/20 [History] Multivitamins, Thera [Multivitamin (formulary)] 1 tab PO DAILY 03/16/20 [History] Propranolol HCl [Inderal Xl] 80 mg PO DAILY 03/16/20 [History] buPROPion HCL [Wellbutrin SR] 150 mg PO Q12H 03/16/20 [History] Follow up Appointment(s)/Referral(s): Danelle Zheng MD [STAFF PHYSICIAN] - 1 Week (Cardiology office will call with appointment time ) David Garcia [Primary Care Provider] - 03/22/20 11:15 am Patient Instructions/Handouts: Chest Pain (DC), Heart Healthy Diet (DC) Activity/Diet/Wound Care/Special Instructions: Activity: As tolerated. Diet: Heart healthy cardiac diet Special Instructions: Resume your home medications and Follow-up with your PCP, Dr. Neely in 1-2 days and with cardiology, Dr. Zheng in 1 week. Suggest repeat cholesterol testing in 6 months. Discharge Disposition: HOME SELF-CARE <Fiorella Quispe - Last Filed: 03/17/20 18:28> Providers Date of admission: 03/16/20 17:26 Attending physician: Fiorella Quispe DO Consults: 03/16/20 17:13 Consult Physician Urgent Consulting Provider: [facility] Consult Reason/Comments: Unstable angina Do you want consulting provider notified?: Yes Primary care physician: [facility] Course: I discussed the care with Ren Peralta NP and reviewed the findings and plan as documented in the note above. I did not staff this patient on this date.
--- NOTE | 2020-03-17 13:01 | ECHOS ---
Stress Test Results/Findings: Exam Performed: stress echo exercise Exam Date: 03/17/20 Reason for Exam: CHEST PAIN Height: 5 ft 7 in Weight: 89.36 kg Protocol: EXERCISE STRESS ECHO Stage: III Duration of Exercise: 7:00 Resting Heart Rate: 67 Resting Blood Pressure: 116/76 Maximum Achieved Heart Rate: 152 Maximum Achieved Blood Pressure: 153/79 85% PMHR: 148 100% PMHR: 174 METS: 8.3 Technologist Comment: Stress Test Results/Findings: This is a 45-year-old female with history of hypertension and smoking admitted to the hospital with complaints of chest pain and palpitations, Stress data: Baseline EKG showed sinus rhythm with short KS and QRS duration with minor nonspecific ST-T changes. Blood pressure at rest is 116/76 with pulse rate of 67. Patient walked on the Darren protocol for 7 minutes achieving a maximum heart rate of 152 with a blood pressure 153/79. EKGs taken during and after the exercise did not reveal any significant changes from the baseline. There are mild nonspecific ST-T abnormalities in inferolateral leads which are not diagnostic for ischemia. Echo data: Baseline echo images show normal wall motion and thickening. Exercise echo images showed augmentation of wall motion and thickening in all segments. Final impression: #1. Patient developed nonspecific ST-T abnormalities which are not diagnostic for ischemia, making it an inconclusive stress test #2. Negative stress echo MTDD
== END 2020-03-17 13:10 | disposition home or self-care (01) ==
LOC: EC 15:31 → 6NMEDSUR 17:26
PROVIDERS: ADMIT Internal Medicine; ATTEND Internal Medicine
DX: R07.89 Other chest pain (principal); I10 Essential (primary) hypertension; D64.9 Anemia, unspecified; K21.9 Gastro-esophageal reflux disease without esophagitis; G43.909 Migraine, unspecified, not intractable, without status migrainosus; F32.9 Major depressive disorder, single episode, unspecified; F41.9 Anxiety disorder, unspecified; E66.9 Obesity, unspecified; Z68.30 Body mass index [BMI] 30.0-30.9, adult; Z79.899 Other long term (current) drug therapy; Z91.041 Radiographic dye allergy status; Z98.51 Tubal ligation status; Z87.891 Personal history of nicotine dependence; Z80.0 Family history of malignant neoplasm of digestive organs; Z80.8 Family history of malignant neoplasm of other organs or systems
CPT/HCPCS: 96366 ×2; 93005 ×2; 96376; 96365; 99291; 36415; 93306; 93351; 85379; 80061; 80053; 83735; 84484; 85025; 85610; 85730; 87635; 71046; G0378 ×2; J1644 ×2

== ENCOUNTER → 2020-08-05 | Outpatient (CLI) | payer MEDICAID ==
[2020-08-05 11:17] LABS: Basophils # (A) 0.05 X 10*3/uL (0.00-0.10); Basophils % (A) 0.8 %; Eosinophils # (A) 0.07 X 10*3/uL (0.04-0.35); Eosinophils % (A) 1.1 %; Lymphocytes # (A) 1.43 X 10*3/uL (0.90-5.00); Lymphocytes % (A) 22.8 %; MCH 28.6 pg (27.0-32.0); MCHC 30.6 g/dL (32.0-37.0); MCV 93.8 fL (80.0-97.0); Mean Platelet Volume 10.3 fL (9.5-12.2); Monocytes # (A) 0.63 X 10*3/uL (0.20-1.00); Neutrophils # (A) 4.07 X 10*3/uL (1.80-7.70); Platelet Count 249 X 10*3/uL (140-440); RBC 3.84 X 10*6/uL (4.10-5.20); WBC 6.27 X 10*3/uL (4.50-10.00)
[2020-08-05 18:14] LABS: African American GFR (CKD) 78.2 (60.0-200.0); Albumin/Globulin Ratio 1.54 (1.60-3.17); Anion Gap 1.6 mmol/L (4.00-12.00); Calcium 8.7 mg/dL (8.7-10.3); Carbon Dioxide 25.4 mmol/L (21.6-31.8); Chol/HDL Ratio 4.49; Globulin 2.6 g/dL (1.6-3.3); LDL Cholesterol,Calculated 116.2 mg/dL (0.0-131.0); Non-African American GFR(CKD) 67.5 (60.0-200.0); Potassium 4.3 mmol/L (3.5-5.5); Total Bilirubin 0.3 mg/dL (0.2-1.2); Total Protein 6.6 g/dL (6.2-8.2); VLDL Calculation 33.8 mg/dL (5.00-40.00)
== END | disposition home or self-care (01) ==
LOC: LABWHC1 07:13
PROVIDERS: ATTEND Nurse Practitioner
DX: Z00.01 Encounter for general adult medical examination with abnormal findings (principal)
CPT/HCPCS: 36415; 80053; 80061; 84443; 85025

== ENCOUNTER 2022-01-19 10:54 | Emergency (ER) | payer MEDICAID ==
[2022-01-19 11:04] VITALS: RESP 18; TEMP 97.7
[2022-01-19 11:38] LABS: Basophils # (A) 0.1 k/uL (0-0.2); Basophils % (A) 1 %; Eosinophils # (A) 0.2 k/uL (0-0.7); Eosinophils % (A) 2 %; HCT 43.1 % (34.0-46.0); HGB 14.6 gm/dL (11.4-16.0); Lymphocytes # (A) 2.8 k/uL (1.0-4.8); Lymphocytes % (A) 29 %; MCH 32.7 pg (25.0-35.0); MCV 96.2 fL (80.0-100.0); Monocytes # (A) 0.6 k/uL (0-1.0); Monocytes % (A) 6 %; Neutrophils # (A) 5.9 k/uL (1.3-7.7); Neutrophils % (A) 60 %; Platelet Count 232 k/uL (150-450); RBC 4.48 m/uL (3.80-5.40); RDW 13.1 % (11.5-15.5); WBC 9.8 k/uL (3.8-10.6)
[2022-01-19 11:57] LABS: ALT 23 U/L (4-34); AST 22 U/L (14-36); African American GFR (CKD) >90 (>60 ml/min/1.73 sqM); Alkaline Phosphatase 116 U/L (38-126); Anion Gap 7 mmol/L; Blood Urea Nitrogen 20 mg/dL (7-17); Calcium 8.7 mg/dL (8.4-10.2); Carbon Dioxide 25 mmol/L (22-30); Chloride 105 mmol/L (98-107); Glucose 73 mg/dL (74-99); Non-African American GFR(CKD) 79 (>60 ml/min/1.73 sqM); Potassium 4.2 mmol/L (3.5-5.1); Sodium 137 mmol/L (137-145); Total Bilirubin 0.5 mg/dL (0.2-1.3); Total Protein 7.1 g/dL (6.3-8.2)
[2022-01-19 12:00] LABS: INR 0.9 (<1.2)
[2022-01-19 13:30] LABS: Appearance,Urine Clear (Clear); Bilirubin,Urine Negative (Negative); Blood,Urine Negative (Negative); Color,Urine Yellow; Glucose,Urine (UA) Negative (Negative); Ketones,Urine Negative (Negative); Leukocyte Esterase,Urine Negative (Negative); Nitrite,Urine Negative (Negative); PH, Urine 5.5 (5.0-8.0); Protein,Urine Negative (Negative); Specific Gravity,Urine 1.017 (1.001-1.035); Urobilinogen,Urine <2.0 mg/dL (<2.0)
[2022-01-19] MEDS ORDERED: MECLIZINE 12.5 MG TAB PO STA (13:53)
--- NOTE | 2022-01-19 14:00 | ED ---
General Adult HPI - General Chief complaint: Dizziness Stated complaint: dizziness, tingling in extremities Time Seen by Provider: 01/19/22 13:36 Source: patient, family, RN notes reviewed, old records reviewed Mode of arrival: ambulatory Limitations: no limitations - History of Present Illness Initial comments: This is a well-appearing 46-year-old female that presents to the emergency room with complaints of dizziness and tingling to her hands and feet that started this morning around 8:00. At this time her symptoms have resolved. She states that she is recovering from upper respiratory infection and finished a Z-Eddie a week ago and just finished a steroid taper yesterday. She does have a history of hypertension and migraine headaches. She denies any pain or discomfort at this time. -: days(s) (1) Location: head Radiation: non-radiation Severity scale (1-10): 0 Consistency: intermittent Improves with: rest Worsens with: movement Associated Symptoms: other (Disequilibrium) - Related Data Home Medications Medication Instructions Recorded Confirmed RX: Venlafaxine HCl [Effexor XR] 75 mg PO DAILY 01/10/17 01/19/22 RX: Lansoprazole 30 mg PO DAILY 03/16/20 01/19/22 RX: Losartan Potassium [Cozaar] 100 mg PO DAILY 03/16/20 01/19/22 RX: Propranolol HCl [Inderal Xl] 80 mg PO DAILY 03/16/20 01/19/22 RX: buPROPion HCL [Wellbutrin SR] 300 mg PO DAILY 03/16/20 01/19/22 Albuterol Sulfate [Albuterol 2 puff PO RT-Q6H PRN 01/19/22 01/19/22 Sulfate Hfa] Benzonatate [Tessalon Perle] 200 mg PO TID PRN 01/19/22 01/19/22 Ferrous Sulfate [Feosol] 325 mg PO DAILY 01/19/22 01/19/22 Fluticasone Nasal [place] [Flonase 1 spray EA NOSTRIL DAILY 01/19/22 01/19/22 Nasal [place]] Galcanezumab-Gnlm [Emgality Pen] 120 mg SQ QMONTHLY 01/19/22 01/19/22 Rimegepant Sulfate [Nurtec Odt] 75 mg PO BID PRN 01/19/22 01/19/22 Allergies Allergy/AdvReac Type Severity Reaction Status Date / Time Iodinated Contrast Media Allergy Rash/Hives Verified 01/19/22 14:24 [Iodinated Contrast Media - IV Dye] Review of Systems ROS Statement: Those systems with pertinent positive or pertinent negative responses have been documented in the HPI. ROS Other: All systems not noted in ROS Statement are negative. Past Medical History Past Medical History: GERD/Reflux, Hypertension Additional Past Medical History / Comment(s): migraines, History of Any Multi-Drug Resistant Organisms: None Reported Past Surgical History: Tubal Ligation Past Anesthesia/Blood Transfusion Reactions: Previous Problems w/ Anesthesia, Motion Sickness Additional Past Anesthesia/Blood Transfusion Reaction / Comment(s): spinal headache-post epidural for L&D-blood patch x2 post epidural Past Psychological History: Anxiety, Depression Smoking Status: Former smoker Past Alcohol Use History: Occasional Past Drug Use History: None Reported - Past Family History Mother Family Medical History: Cancer Additional Family Medical History / Comment(s): thyroid Father Additional Family Medical History / Comment(s): paternal grandfather had colon and pancreatic CA General Exam Limitations: no limitations General appearance: alert, in no apparent distress Head exam: Present: atraumatic, normocephalic Eye exam: Present: PERRL, EOMI. Absent: scleral icterus, conjunctival injection, periorbital swelling ENT exam: Present: mucous membranes moist, TM's normal bilaterally, normal external ear exam Expanded Mouth exam: Present: tongue normal, tongue elevation. Absent: drooling, trismus, muffled voice Throat exam: normal inspection. negative: tonsillar exudate, R peritonsillar mass, L peritonsillar mass Neck exam: Present: full ROM. Absent: tenderness, meningismus, lymphadenopathy, thyromegaly Respiratory exam: Absent: respiratory distress, accessory muscle use Cardiovascular Exam: Present: regular rate GI/Abdominal exam: Present: soft. Absent: rigid Extremities exam: Present: full ROM. Absent: pedal edema Neurological exam: Present: alert, oriented X3, CN II-XII intact, normal gait Expanded Patient oriented to: Present: person, place, time Speech: Present: fluid speech Cranial nerves: EOM's Intact: Normal, Gag Reflex: Normal, Tongue Deviation: Normal, Nystagmus: Normal Cerebellar function: Finger to Nose: Normal, Heel to Hope: Normal, Romberg: Normal Motor strength exam: RUE: 5, LUE: 5, RLE: 5, LLE: 5 Eye Response: (4) open spontaneously Motor Response: (6) obeys commands Verbal Response: (5) oriented Alisson Total: 15 Psychiatric exam: Present: normal affect, normal mood Skin exam: Present: warm, dry, normal color. Absent: cyanosis, diaphoretic, petechiae, pallor Course Vital Signs 01/19/22 01/19/22 01/19/22 11:00 15:41 15:42 Temperature 97.7 F Pulse Rate 78 66 81 Respiratory 18 Rate Blood Pressure 142/95 131/87 125/84 O2 Sat by Pulse 100 98 100 Oximetry 01/19/22 15:43 Temperature Pulse Rate 86 Respiratory Rate Blood Pressure 119/83 O2 Sat by Pulse 99 Oximetry - Reevaluation(s) Reevaluation #1: 01/19/22 14:52 Patient was given meclizine states that she does not feel that this is vertigo, that she has had that in the past. She just feels like something is not right. She has no pain or discomfort. No focal neurological deficits. Patient was g iven applesauce juice and crackers. We will reassess Time: 14:52 EKG Findings - EKG Results: EKG: sinus rhythm (Ventricular rate 73, AL interval 0.166, QRS 0.97, QTC 0.423; normal axis) Medical Decision Making - Medical Decision Making On physical exam patient is GCS of 15, able to ambulate. She does have dizziness when she closes her eyes as a sensation of disequilibrium. Rapid hand movements, heel hope and finger-nose exams are normal. No vertical nystagmus She is recently recovering from an upper respiratory infection last dose of that steroids yesterday. This is likely disequilibrium related to vertigo EKG interpreted by me shows sinus rhythm with no ST elevation, no significant change compared to old 03/16/20 Patient denies any chest pain or difficulty breathing. Lungs sounds are clear. Sinuses are stable. Blood glucose is 73. She states that she only had a protein bar this morning. Labs show no evidence of leukocytosis. Hemoglobin and hematocrit are stable electrolytes show blood glucose of 73. Urinalysis is negative for infection. Troponin is negative at 0.012 changes. This is likely peripheral vertigo. She was given Antivert in the emergency room. This may also been a hypoglycemic episode is patient is a 72, states only ate a protein bar this morning when she had her hands and feet. Those symptoms have resolved at this time. Dizziness may also be related to the steroids that she was prescribed for her upper respiratory illness. At this time do not have a source for the patient's symptoms however I do feel that this is vertigo/ disequilibrium. Upper respiratory infection recently versus side effect of prednisone. Patient is well-appearing. She was offered a brain CT declined She will be given a referral to neurology directed to follow up with her primary care doctor tomorrow. Return to emergency room with a concerning symptoms. Case discussed with Dr. Simon - Lab Data Result diagrams: 01/19/22 11:08 01/19/22 11:08 Lab Results 01/19/22 01/19/22 01/19/22 Range/Units 11:08 11:08 11:08 WBC 9.8 (3.8-10.6) k/uL RBC 4.48 (3.80-5.40) m/uL Hgb 14.6 (11.4-16.0) gm/dL Hct 43.1 (34.0-46.0) % MCV 96.2 (80.0-100.0) fL MCH 32.7 (25.0-35.0) pg MCHC 34.0 (31.0-37.0) g/dL RDW 13.1 (11.5-15.5) % Plt Count 232 (150-450) k/uL MPV 8.0 Neutrophils % 60 % Lymphocytes % 29 % Monocytes % 6 % Eosinophils % 2 % Basophils % 1 % Neutrophils # 5.9 (1.3-7.7) k/uL Lymphocytes # 2.8 (1.0-4.8) k/uL Monocytes # 0.6 (0-1.0) k/uL Eosinophils # 0.2 (0-0.7) k/uL Basophils # 0.1 (0-0.2) k/uL PT 10.0 (9.0-12.0) sec INR 0.9 (<1.2) Sodium 137 (137-145) mmol/L Potassium 4.2 (3.5-5.1) mmol/L Chloride 105 (98-107) mmol/L Carbon Dioxide 25 (22-30) mmol/L Anion Gap 7 mmol/L BUN 20 H (7-17) mg/dL Creatinine 0.88 (0.52-1.04) mg/dL Est GFR (CKD-EPI)AfAm >90 (>60 ml/min/1.73 sqM) Est GFR (CKD-EPI)NonAf 79 (>60 ml/min/1.73 sqM) Glucose 73 L (74-99) mg/dL Calcium 8.7 (8.4-10.2) mg/dL Total Bilirubin 0.5 (0.2-1.3) mg/dL AST 22 (14-36) U/L ALT 23 (4-34) U/L Alkaline Phosphatase 116 (38-126) U/L Troponin I (0.000-0.034) ng/mL Total Protein 7.1 (6.3-8.2) g/dL Albumin 4.0 (3.5-5.0) g/dL Urine Color Urine Appearance (Clear) Urine pH (5.0-8.0) Ur Specific [place] (1.001-1.035) Urine Protein (Negative) Urine Glucose (UA) (Negative) Urine Ketones (Negative) Urine Blood (Negative) Urine Nitrite (Negative) Urine Bilirubin (Negative) Urine Urobilinogen (<2.0) mg/dL Ur Leukocyte Esterase (Negative) 01/19/22 01/19/22 Range/Units 11:08 11:09 WBC (3.8-10.6) k/uL RBC (3.80-5.40) m/uL Hgb (11.4-16.0) gm/dL Hct (34.0-46.0) % MCV (80.0-100.0) fL MCH (25.0-35.0) pg MCHC (31.0-37.0) g/dL RDW (11.5-15.5) % Plt Count (150-450) k/uL MPV Neutrophils % % Lymphocytes % % Monocytes % % Eosinophils % % Basophils % % Neutrophils # (1.3-7.7) k/uL Lymphocytes # (1.0-4.8) k/uL Monocytes # (0-1.0) k/uL Eosinophils # (0-0.7) k/uL Basophils # (0-0.2) k/uL PT (9.0-12.0) sec INR (<1.2) Sodium (137-145) mmol/L Potassium (3.5-5.1) mmol/L Chloride (98-107) mmol/L Carbon Dioxide (22-30) mmol/L Anion Gap mmol/L BUN (7-17) mg/dL Creatinine (0.52-1.04) mg/dL Est GFR (CKD-EPI)AfAm (>60 ml/min/1.73 sqM) Est GFR (CKD-EPI)NonAf (>60 ml/min/1.73 sqM) Glucose (74-99) mg/dL Calcium (8.4-10.2) mg/dL Total Bilirubin (0.2-1.3) mg/dL AST (14-36) U/L ALT (4-34) U/L Alkaline Phosphatase (38-126) U/L Troponin I <0.012 (0.000-0.034) ng/mL Total Protein (6.3-8.2) g/dL Albumin (3.5-5.0) g/dL Urine Color Yellow Urine Appearance Clear (Clear) Urine pH 5.5 (5.0-8.0) Ur Specific [place] 1.017 (1.001-1.035) Urine Protein Negative (Negative) Urine Glucose (UA) Negative (Negative) Urine Ketones Negative (Negative) Urine Blood Negative (Negative) Urine Nitrite Negative (Negative) Urine Bilirubin Negative (Negative) Urine Urobilinogen <2.0 (<2.0) mg/dL Ur Leukocyte Esterase Negative (Negative) Disposition Clinical Impression: Dizziness Disposition: HOME SELF-CARE Condition: Good Instructions (If sedation given, give patient instructions): Dizziness (ED) Additional Instructions: Today we completed a workup for your complaint of dizziness. Sometimes we do not always find the cause of your symptoms in one ER visit. The findings on your exam, EKG and blood work today are reassuring. At this time it is not 100% certain what is causing your symptoms but we feel you can be discharged from the emergency room. It is possible this may worsen or you may get better. Please if you get worse or your symptoms change return to the emergency room. Otherwise follow up with primary care doctor this week or the specialist we have provided you. Increase your fluid intake. Your blood glucse was a little low therefore I recommend that you eat small meals throughout the day. Follow-up with your primary care doctor tomorrow and neurologist as needed for continuation of care. Is patient prescribed a controlled substance at d/c from ED?: No Referrals: Arti Tamayo DO [Primary Care Provider] - 1-2 days Naldo Leonard MD [Medical Doctor] - 1-2 days Time of Disposition: 15:43
[2022-01-19 15:43] VITALS: BP 119/83; PULSE 86
== END 2022-01-19 16:23 | disposition home or self-care (01) ==
LOC: EC 10:54
DX: R42 Dizziness and giddiness (principal); I10 Essential (primary) hypertension; F41.9 Anxiety disorder, unspecified; F32.A Depression, unspecified; K21.9 Gastro-esophageal reflux disease without esophagitis; Z87.891 Personal history of nicotine dependence; Z91.048 Other nonmedicinal substance allergy status; Z79.899 Other long term (current) drug therapy
CPT/HCPCS: 36415; 80053; 81003; 84484; 85025; 85610; 93005; 99284

== ENCOUNTER → 2022-01-27 | Outpatient (CLI) | payer MEDICAID ==
[2022-01-27 12:28] LABS: Anion Gap 9.1 mmol/L (10.00-18.00); BUN/Creat Ratio 14.07 Ratio (12.00-20.00); Blood Urea Nitrogen 13.8 mg/dL (9.0-27.0); Calcium 9.4 mg/dL (8.7-10.3); Carbon Dioxide 28.8 mmol/L (20.0-27.5); Non-African American GFR(CKD) 68.1 (60.0-200.0); Potassium 4.7 mmol/L (3.5-5.5)
== END | disposition home or self-care (01) ==
LOC: LABWHC1 07:34
PROVIDERS: ATTEND Nurse Practitioner Family
DX: R42 Dizziness and giddiness (principal)
CPT/HCPCS: 36415; 80048; 83735

== ENCOUNTER → 2022-05-19 | Outpatient (CLI) | payer MEDICAID ==
--- NOTE | 2022-05-22 10:17 | MM ---
Reason for Exam: Screening (asymptomatic). Last screening mammogram was performed 12 month(s) ago. Patient History: Menarche at age 12. First Full-Term at age 26. Patient used Hormonal Contraceptives for 2 years. Risk Values: Jil 5 year model risk: 1.0%. NCI Lifetime model risk: 10.2%. Prior Study Comparison: 01/28/2016 Bilateral Screening Mammogram, [facility]. 02/14/2018 Bilateral Screening Mammogram, [facility]. 05/18/2021 Bilateral Screening Mammogram, [facility]. Tissue Density: The breast tissue is heterogeneously dense. This may lower the sensitivity of mammography. Findings: Analyzed By CAD. There is no suspicious group of microcalcifications or new suspicious mass in either breast. Overall Assessment: Benign, BI-RAD 2 Management: Screening Mammogram of both breasts in 1 year. A clinical breast exam by your physician is recommended on an annual basis and results should be correlated with mammographic findings. Electronically signed and approved by: Tylor Montana M.D. Radiologis
== END | disposition home or self-care (01) ==
LOC: RADMAMWWP 15:55
PROVIDERS: ATTEND Family Medicine
DX: Z12.31 Encounter for screening mammogram for malignant neoplasm of breast (principal)
CPT/HCPCS: 77063; 77067

== ENCOUNTER 2022-09-11 09:35 | Day surgery (SDC) | payer MEDICAID ==
[2022-09-04 11:02] VITALS: BMI 28.6
[~2022-09-11 09:35] MED LIST changes: -DEXAMETHASONE SOD PHOSPHATE 10 MG/ML 1 ML VIAL IV ONE; +LIDOCAINE 1% (10MG/ML) FOR IV START INTRADERMA PRN; -ONDANSETRON 4 MG/2 ML VIAL IVP ONE
[2022-09-11 10:12] VITALS: TEMP 96.4
[2022-09-11] MEDS ORDERED: PROPOFOL 10 MG/ML 20 ML VIAL IV ONE (10:27)
[2022-09-11] MEDS ORDERED: LIDOCAINE 2% INJ 20 MG/ML (2 ML VIAL) ONE (10:27)
--- NOTE | 2022-09-11 11:02 | P.PCN ---
Date of Procedure: 09/11/22 Preoperative Diagnosis: GERD, colon cancer screening, family history of colon cancer Postoperative Diagnosis: GERD, possible Caicedo's esophagus, colon cancer screening, family history of colon cancer, diverticulosis Procedure(s) Performed: EGD with biopsy and colonoscopy Anesthesia: ADARSH BARRIOS Surgeon: Salina Amor Condition: stable Disposition: PACU Description of Procedure: Patient presents for first colon cancer screening. There is a family history of colon cancer in her grandfather. She also has had long-standing GERD and due to the long-standing nature recommended EGD to rule out any Caicedo's esophagus. She's taken to the endoscopy suite were gastroscope is passed per mouth to the third and fourth portions of the duodenum. Pharynx is unremarkable. The esophagus is without evidence of esophagitis or mass lesion. There is a small tongue of change in the distal esophagus which could be Caicedo's esophagus, col d biopsies were obtained. Otherwise the stomach, pylorus and duodenum were without evidence of polyp mass lesion, ulcer, stricture or other mucosal abnormality. She is then repositioned in a colonoscope is passed per rectum to the cecum. There is a good prep. There is some granular material which is easily aspirated. Some diverticulosis is noted scattered throughout the colon. Otherwise no evidence of polyp mass lesion, ulcer, stricture or other mucosal abnormality. Small hemorrhoids were seen on retroflexion of the scope. She tolerated the procedure without difficulty and was taken recovery room in satisfactory condition. We will call with the report of the biopsies and let her know whether she needs surveillance for possible Caicedo's. Otherwise normal colonoscopy in 5 years Plan - Discharge Summary Discharge Rx Participant: Yes New Discharge Prescriptions: No Action Venlafaxine HCl [Effexor XR] 75 mg PO QAM Propranolol HCl [Inderal Xl] 80 mg PO QAM Losartan Potassium [Cozaar] 100 mg PO QAM buPROPion HCL [Wellbutrin SR] 300 mg PO QAM Lansoprazole 30 mg PO DAILY Albuterol Sulfate [Albuterol Sulfate Hfa] 2 puff INHALATION Q6H PRN PRN Reason: Shortness Of Breath Rimegepant Sulfate [Nurtec Odt] 75 mg PO BID PRN PRN Reason: Migraine Headache Fluticasone Nasal [place] [Flonase Nasal [place]] 1 spray EA NOSTRIL DAILY PRN PRN Reason: Nasal Congestion Discharge Medication List Venlafaxine HCl [Effexor XR] 75 mg PO QAM 01/10/17 [History] Lansoprazole 30 mg PO DAILY 03/16/20 [History] Losartan Potassium [Cozaar] 100 mg PO QAM 03/16/20 [History] Propranolol HCl [Inderal Xl] 80 mg PO QAM 03/16/20 [History] buPROPion HCL [Wellbutrin SR] 300 mg PO QAM 03/16/20 [History] Albuterol Sulfate [Albuterol Sulfate Hfa] 2 puff INHALATION Q6H PRN 01/19/22 [History] Rimegepant Sulfate [Nurtec Odt] 75 mg PO BID PRN 01/19/22 [History] Fluticasone Nasal [place] [Flonase Nasal [place]] 1 spray EA NOSTRIL DAILY PRN 09/04/22 [History] Discharge Disposition: HOME SELF-CARE
[2022-09-11 11:27] VITALS: BP 144/96; PULSE 62; RESP 16
== END 2022-09-11 11:50 | disposition home or self-care (01) ==
LOC: ORWHC2ENDO 09:35
PROVIDERS: ATTEND Surgery
DX: Z12.11 Encounter for screening for malignant neoplasm of colon (principal); K21.00 Gastro-esophageal reflux disease with esophagitis, without bleeding; K57.30 Diverticulosis of large intestine without perforation or abscess without bleeding; K64.8 Other hemorrhoids; Z80.0 Family history of malignant neoplasm of digestive organs; Z79.899 Other long term (current) drug therapy
CPT/HCPCS: 45378; 81025; 88305; 43239; J2704; J2001

== ENCOUNTER → 2023-07-23 | Outpatient (CLI) | payer MEDICAID ==
[2023-07-23 15:29] LABS: Basophils # (A) 0.05 X 10*3/uL (0.00-0.10); Basophils % (A) 0.9 %; Eosinophils # (A) 0.09 X 10*3/uL (0.04-0.35); Eosinophils % (A) 1.7 %; HCT 41.9 % (37.2-46.3); HGB 13.2 g/dL (12.0-15.0); Lymphocytes # (A) 1.47 X 10*3/uL (0.90-5.00); Lymphocytes % (A) 27.7 %; MCH 30.6 pg (27.0-32.0); MCHC 31.5 g/dL (32.0-37.0); Mean Platelet Volume 10.7 FL (9.5-12.2); Monocytes # (A) 0.47 X 10*3/uL (0.20-1.00); Monocytes % (A) 8.9 %; NRBC Per 100 WBC 0 X 10*3/uL (0.00-0.01); Neutrophils # (A) 3.22 X 10*3/uL (1.80-7.70); Neutrophils % (A) 60.6 %; Platelet Count 213 X 10*3/uL (140-440); RBC 4.32 X 10*6/uL (4.10-5.20); RDW 12.9 % (11.5-14.5); WBC 5.31 X 10*3/uL (4.50-10.00)
[2023-07-23 15:55] LABS: ALT 24 U/L (8-44); AST 20 U/L (13-35); Albumin 4.3 g/dL (3.8-4.9); Albumin/Globulin Ratio 1.65 Ratio (1.60-3.17); Alkaline Phosphatase 128 U/L (41-126); BUN/Creat Ratio 22.56 Ratio (12.00-20.00); Blood Urea Nitrogen 20.3 mg/dL (9.0-27.0); Calcium 9.5 mg/dL (8.7-10.3); Carbon Dioxide 26.3 mmol/L (21.6-31.8); Chloride 104 mmol/L (96-109); Chol/HDL Ratio 3.88 Ratio; Globulin 2.6 g/dL (1.6-3.3); Glucose 117 mg/dL (70-110); LDL Cholesterol,Calculated 107.2 mg/dL (0.0-131.0); Potassium 4.8 mmol/L (3.5-5.5); Sodium 140 mmol/L (135-145); Total Bilirubin <0.2 mg/dL (0.3-1.2); Total Protein 6.9 g/dL (6.2-8.2)
== END | disposition home or self-care (01) ==
LOC: LABWHC1 08:54
PROVIDERS: ATTEND Nurse Practitioner Family
DX: I10 Essential (primary) hypertension (principal); E78.2 Mixed hyperlipidemia
CPT/HCPCS: 36415; 80053; 80061; 85025

== ENCOUNTER → 2023-08-31 | Outpatient (CLI) | payer MEDICAID ==
[2023-08-31 21:06] LABS: Estradiol 77.1 pg/mL
[2023-08-31 21:44] LABS: Follicle Stimulating Hormone 49.9 mIU/mL
== END | disposition home or self-care (01) ==
LOC: LABWHC1 15:39
PROVIDERS: ATTEND Family Medicine
DX: N95.9 Unspecified menopausal and perimenopausal disorder (principal)
CPT/HCPCS: 36415; 82670; 83001

== ENCOUNTER → 2023-10-19 | Outpatient (CLI) | payer MEDICAID ==
--- NOTE | 2023-10-21 11:34 | MM ---
Reason for Exam: Screening (asymptomatic). Last mammogram was performed 1 year(s) and 5 month(s) ago. Patient History: Menarche at age 12. First Full-Term at age 26. Patient used Hormonal Contraceptives for 2 years. Risk Values: Jil 5 year model risk: 1.0%. NCI Lifetime model risk: 10.0%. Prior Study Comparison: 02/14/2018 Bilateral Screening Mammogram, [facility]. 05/18/2021 Bilateral Screening Mammogram, [facility]. 05/19/2022 Bilateral MG 3D screening mammo w/cad, [facility]. Tissue Density: The breasts are almost entirely fatty. Findings: Analyzed By CAD. Right breast: There is no suspicious group of microcalcifications or new suspicious mass. Left breast: There is no suspicious group of microcalcifications or new suspicious mass. Overall Assessment: Negative, BI-RAD 1 Management: Screening Mammogram of both breasts in [address] [facility] will attempt to contact patient to return for supplemental views and ultrasound if indicated. Patient should continue monthly self-breast exams. A clinical breast exam by your physician is recommended on an annual basis. This exam should not preclude additional follow-up of suspicious palpable abnormalities. Note on Jil scores and lifetime risk: 1. A Jil score greater than 3% is considered moderate risk. If this is the case, consider specialist referral to assess eligibility for a risk reducing agent. 2. If overall lifetime risk for the development of breast cancer is 20% or higher, the patient may qualify for future screening with alternating mammogram and breast MRI. Electronically signed and approved by: Jey Capone DO
== END | disposition home or self-care (01) ==
LOC: RADMAMWWP 16:08
PROVIDERS: ATTEND Family Medicine
DX: Z12.31 Encounter for screening mammogram for malignant neoplasm of breast
CPT/HCPCS: 77063; 77067

== ENCOUNTER → 2024-04-10 | Outpatient (CLI) | payer MEDICAID ==
--- NOTE | 2024-04-10 13:28 | US ---
EXAMINATION TYPE: US thyroid st tissue head/neck DATE OF EXAM: 04/10/2024 COMPARISON: NONE CLINICAL INDICATION: Female, 49 years old with history of E04.9 NONTOXIC GOITER, UNSPECIFIED; rt thyr oid feels larger, family hx of thyroid ca TECHNIQUE: Grayscale and color Doppler imaging of the thyroid gland. FINDINGS: GLAND SIZE: Right Lobe: 5.5x1.7x1.9cm Overall Parenchyma: heterogeneous Left Lobe: 4.8x1.7x2.0cm Overall Parenchyma: heterogeneous Isthmus Thickness: 0.4m NODULES RIGHT: # of nodules measured on right: 0 LEFT: # of nodules measured on left: 0 ISTHMUS: # of nodules measured in the isthmus: 0 Bilateral neck scanned, no evidence of lymphadenopathy. Heterogeneous normal-sized thyroid without discrete nodule. IMPRESSION: As above. 2017 ACR TI-RADS LEVEL: TI-RADS 1 - BENIGN: No FNA *Highest TI-RADS level nodule reported [email or web address] [facility], , 04/10/2024 1:25 PM
== END | disposition home or self-care (01) ==
LOC: RADUSWWP 12:33
PROVIDERS: ATTEND Family Medicine
DX: E04.2 Nontoxic multinodular goiter (principal)
CPT/HCPCS: 76536